=== PATIENT | female | born 1950 | race Caucasian/White ===

== ENCOUNTER → 2020-12-13 07:29 | Outpatient (CLI) | payer MEDICARE, OTHER, SELFPAY ==
[2020-12-13 08:54] LABS: Add Manual Diff / Slide Review NO; Basophils Absolute Auto 100 /uL (0-100); Basophils Percent Auto 1.2 % (0-2); Eosinophils Absolute Auto 300 /uL (0-450); Eosinophils Percent Auto 5.3 % (2-4); Hematocrit 39.3 % (36-46); Hemoglobin 13.2 g/dL (12.0-16.0); Lymphocytes Absolute Auto 1000 /uL (1100-4500); Lymphocytes Percent Auto 21.7 % (25-40); Mean Corpuscular HGB Conc 33.6 % (30-36); Mean Corpuscular Hemoglobin 30.6 PG (26-34); Mean Corpuscular Volume 90.9 fL (80-100); Monocytes Absolute Auto 400 /uL (0-900); Monocytes Percent Auto 8.2 % (3-14); Neutrophils Absolute Auto 3100 /uL (1500-7000); Neutrophils Percent Auto 63.6 % (50-75); Platelet Count 232 X10^3/uL (150-400); Red Blood Cell Count 4.33 X10^6/uL (4.0-5.2); Red Cell Distribution Width 12.8 % (11.6-14.8); White Blood Cell Count 4.8 X10^3/uL (4.5-11.0)
[2020-12-13 09:23] LABS: Alanine Aminotransferase 47 IU/L (<35); Albumin Globulin Ratio 1.5 (1.0-2.8); Alkaline Phosphatase 80 U/L (38-126); Aspartate Aminotransferase 35 IU/L (14-36); Bilirubin Total 0.4 mg/dL (0.2-1.3); Blood Urea Nitrogen 16 mg/dL (7-17); Calcium 9.1 mg/dL (8.4-10.2); Carbon Dioxide 31 mmol/L (22-32); Chloride 104 mmol/L (98-107); Cholesterol 217 mg/dL (140-199); Estimated Glomerular Filt Rate > 60.0 mL/min (>60); Globulin 2.7 g/dL (1.7-4.1); Glucose 86 mg/dL (80-110); HDL Cholesterol 73 mg/dL (40-60); HEMOLYSIS < 15 (0-50); LDL Cholesterol Calculated 130 mg/dL (<100); Potassium 4.4 mmol/L (3.4-5.1); Sodium 139 mmol/L (137-145); Total Protein 6.7 g/dL (6.3-8.2); Triglycerides 72 mg/dL (35-150)
== END ==
PROVIDERS: PCP Internal Medicine; Referring Provider Internal Medicine; Visit Provider Internal Medicine
DX: I34.0 Nonrheumatic mitral (valve) insufficiency (principal)
CPT/HCPCS: 36415; 80053; 80061; 85025

== ENCOUNTER → 2020-12-21 13:43 | Outpatient (CLI) | payer MEDICARE, SELFPAY ==
--- NOTE | 2020-12-21 13:46 | DI.ECHO.S_ITS ---
[facility] +---------+ : : [address] : : : : [id number] : : : : Phone: [phone] +---------+ Echocardiogram Report + + :Name: LAUREL CHOPRA Study Date: 12/21/2020 Height: 66 in : :[facility] ReadingLocation: Weight: 138 lb : : Gender: Female BSA: 1.7 m2 : :: 1950 Age: 70 yrs BP: 127/85 mmHg: :Reason For Study: MITRAL REGURGITATION : :Ordering Physician: SIGIFREDO, : :SIRI Sharma Performed By: Jossie Cuevas : :Referring: SIRI MEI : + + Interpretation Summary The ejection fraction is estimated to be 65-70%. Diastolic function could not be accurately assessed. The right ventricle is normal in size and function. The left atrium is mildly dilated. There is moderate mitral regurgitation. There is moderate tricuspid regurgitation. PASP is approximately 35 to 40 mmHg. Procedure: A two-dimensional transthoracic echocardiogram with color flow and Doppler was performed. The study quality was technically good. There is no prior echocardiogram noted for this patient. The patient was in sinus bradycardia with heart rates between 54-61 bpm during the exam. Left Ventricle: The left ventricle is normal in size and wall thickness. The ejection fraction is estimated to be 65-70%. Diastolic function could not be accurately assessed due to contradictory data. Right Ventricle: The right ventricle is normal in size and function. Atria: The left atrium is mildly dilated. Right atrial size is normal. There is no Doppler evidence for an interatrial shunt. Mitral Valve: There is a flat closure plane of the the mitral valve leaflets. There is moderate mitral regurgitation. Aortic Valve: The aortic valve is trileaflet. The aortic valve opens well. There is no aortic valve stenosis. No aortic regurgitation is present. Tricuspid Valve: The tricuspid valve leaflets are thin and pliable. There is moderate tricuspid regurgitation. PASP is approximately 35 to 40 mmHg. Pulmonic Valve: The pulmonic valve leaflets are thin and pliable; valve motion is normal. There is mild pulmonic regurgitation. Great Vessels: The aortic root is normal size. The dimensions of the ascending aorta are normal. The IVC is of normal diameter and collapses greater than 50% with a sniff. This suggests a low right atrial pressure of 3 mm Hg. Pericardium/ Pleura There is no pericardial effusion. There is no pleural effusion. MMode/2D Measurements & Calculations LVIDd: 4.5 cm LVOT diam: 2.0 cm LVIDs: 2.8 cm Ao root diam: 2.6 cm FS: 36.1 % asc Aorta Diam: 3.2 cm IVSd: 0.81 cm Ao Arch Diam (Prox Trans): 2.7 cm LVPWd: 0.70 cm LV gracia. diameter/BSA (cm/m^2): 2.6 LV sys. diameter/BSA (cm/m^2): 1.7 LA A2 area: 22.3 cm2 RA long axis: 4.1 cm LA A4 area: 17.6 cm2 RA area: 12.5 cm2 LA length (vol): 4.7 cm RA vol: 32.3 ml LA vol: 71.0 ml RA : 18.9 ml/m2 LA vol index: 41.5 ml/m2 IVC diam: 1.6 cm RVD1 (basal): 3.1 cm TAPSE: 2.2 cm Doppler Measurements & Calculations Ao V2 max: 163.7 cm/sec LVOT Max Dave: 127.6 cm/sec Ao V2 mean: 115.4 cm/sec LV V1 max P.5 mmHg Ao max P.7 mmHg LV V1 VTI: 29.8 cm Ao mean P.9 mmHg KAYLA(I,D): 2.3 cm2 Ao V2 VTI: 39.5 cm KAYLA(V,D): 2.4 cm2 sev ratio: 0.75 KAYLA indexed to BSA (cm^2/m^2): 1.3 MV E max dave: 112.1 cm/sec TR max dave: 280.9 cm/sec MV A max dave: 58.1 cm/sec TR max P.6 mmHg MV E/A: 1.9 PA V2 max: 93.8 cm/sec Med Peak E' Dave: 6.0 cm/sec PA V2 mean: 66.3 cm/sec E/E' med: 18.8 PA mean P.0 mmHg Lat Peak E' Dave: 11.0 cm/sec PA pr(Accel): 15.6 mmHg E/E' lat: 10.2 E/e' average: 14.5 MV dec time: 0.22 sec MR PISA: 2.6 cm2 SV(LVOT): 90.8 ml MR flow rate: 95.5 cm3/sec MR PISA radius: 0.64 cm Reading Physician:03:16 PM
== END ==
PROVIDERS: PCP Internal Medicine; Referring Provider Internal Medicine; Visit Provider Internal Medicine
DX: I08.1 Rheumatic disorders of both mitral and tricuspid valves (principal)
CPT/HCPCS: 93306

== ENCOUNTER 2021-02-21 12:15 | Outpatient (RCR) | payer MEDICARE, SELFPAY ==
--- NOTE | 2020-12-30 13:42 | PT.OIE ---
Current Diagnoses Iliotibial band syndrome, left leg (12/30/20) Past Medical History (Last Updated 10/06/20 @ 15:25 by William Brenner MD) History of bunionectomy of both great toes History of cataract removal with insertion of prosthetic lens (~2020) History of knee surgery History of shoulder surgery History of total left knee replacement (~06/2018) Hypertension (~01/12/20) Infertility Menopausal state Mitral valve regurgitation (~2018) Mixed hyperlipidemia Osteoarthritis Osteoporosis Wears glasses Past Surgical History (Last Updated 10/05/20 @ 21:36 by Diandra Quiroga) Anesthesia History of bunionectomy of both great toes History of cataract removal with insertion of prosthetic lens (~2020) History of ectopic History of knee surgery History of shoulder surgery History of total left knee replacement (~06/2018) Visit Care Team Role Provider Type William Brenner MD Attending Provider Physician Primary Care Provider Referring Provider Specialty: Internal Medicine Address: [address] [place] [address], [address], [facility] Email: [email or web address] Physical Therapy Initial Evaluation PT-OP-A Visit Information Start: 12/28/20 15:29 Freq: Status: Active Protocol: Document 12/30/20 08:16 MB (Rec: 12/30/20 08:28 MB [id number]) Out-Patient Physical Therapy Visit Information Visit Information Visit Type Initial Evaluation Visit Note Medicare AARP Visit Start Time 08:16 Visit Stop Time 08:54 Total Visit Minutes 38 Visit Number 1 Evaluation Information Evaluation Date 12/30/20 PT-OP-B Current Condition Start: 12/28/20 15:29 Freq: Status: Active Protocol: Document 12/30/20 08:16 MB (Rec: 12/30/20 08:28 MB [id number]) Current Condition History of Current Condition Onset Date Months Current Complaints Left hip to lateral left leg pain History of Current Condition Pt is sure that she has left IT band syndrome. The pain moves from her lateral left hip down her leg to below her knee. 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 There is a 3 mile walk at [employer] and 5 mile walk at [facility] and both are excruciating. She has hamstring pain, too. She underwent right knee arthroscopic surgery in 2018 and TKR left knee in 2019. Pain starts immediately upon walking. A democrat trick growing up was popping her left hip out. She has medial left knee pain with performing hip rotator stretch in sitting. In sitting, her left hip can start bothering her. She does knitting in sitting. She is not into the pool. Sleeping is going badly. Her cats wake her up and she has always been a poor sleeper. She does yoga three days a week and uses props and doesn' t do it if it hurts. She was pushing walking speed to 16 minutes a mile for cardiac work out. Prior Treatments and Tests PT in the past and went well Treatment Goals Patient/Caregiver Goals To decrease pain and get back to her walking PT-OP-C Subjective Start: 12/28/20 15:29 Freq: Status: Active Protocol: Document 12/30/20 08:16 MB (Rec: 12/30/20 08:28 MB [id number]) OP-PT Subjective Patient Comments Patient Comments See history of current condition Patient Questionnaires Lower Extremity Functional Scale LEFS Score 54 LEFS Impairment 20 to 39% Impaired (Score 48- 62) PT-OP-G Mobility & Gait Start: 12/28/20 15:29 Freq: Status: Active Protocol: Document 12/30/20 08:16 MB (Rec: 12/30/20 13:42 MB [id number]) OP Gait Assessment Assistive Devices Assistive Device None Gait Deviations General Gait Pattern Within Normal Limits Factors Limiting Gait Function Factors Limiting Gait Function Limited Range of Motion Comments Gait Comments Pt with increased weight bearing lateral left foot with gait in socks PT-OP-J Posture/Palpation/Skin Start: 12/28/20 15:29 Freq: Status: Active Protocol: Document 12/30/20 08:16 MB (Rec: 12/30/20 13:42 MB [id number]) Posture Evaluation Comments Posture Comments Standing posture in socks: Dowager's hump, decreased thoracic kyphosis, increased lumbar lordosis, anterior tile pelvis, right shoulder lower than the left, right medial clavicular protrusion, left iliac crest mildly higher than the right Palpation: increased tension and tenderness left TFL, glute min and vastus lateralis PT-OP-K Range of Motion Start: 12/28/20 15:29 Freq: Status: Active Protocol: Document 12/30/20 08:16 MB (Rec: 12/30/20 13:42 MB [id number]) Hip Goniometric Range of Motion Hip ROM Limitations Comments Passive ER and IR in hooklying WNLs for age and pt reports lateral left hip pain with left Scour test. B Slump Test negative PT-OP-M Strength Start: 12/28/20 15:29 Freq: Status: Active Protocol: Document 12/30/20 08:16 MB (Rec: 12/30/20 13:42 MB [id number]) Hip Strength Hip Manual Muscle Testing Left Flexion (L2) 4 Good Abduction 4 Good Adduction 4 Good Right Flexion (L2) 5 Normal Abduction 5 Normal Adduction 5 Normal Knee Strength Knee Manual Muscle Testing Left Flexion (S2) 5 Normal Extension (L3) 5 Normal Right Flexion (S2) 5 Normal Extension (L3) 5 Normal Ankle/Foot Strength Ankle and Foot Manual Muscle Testing Left Dorsiflexion (L4) 5 Normal Right Dorsiflexion (L4) 5 Normal Toe Strength Toe Manual Muscle Testing Left Great Toe Flexion 5 Normal Right Great Toe Flexion 5 Normal PT-OP-Q Treatments Start: 12/28/20 15:29 Freq: Status: Active Protocol: Document 12/30/20 08:16 MB (Rec: 12/30/20 13:42 MB [id number]) Therapeutic Exercises Supine Exercises Hamstring stretch with AP Side bilateral Comments 20 pumps each foot Hip rotator stretch Side bilateral Comments 30 sec hold each leg, ed not to press on knee Self-Care/Home Management Treatment Education Other Education Ed pt to consider asking doctor or pharmacist about Voltaren gel to use before long walks and going to bed, ed pt to stop twisting hip stretch in supine and forward flexion hamstring stretch and perform stretches that are better for her back that PT teaches her today PT-OP-T Assessment and Plan Start: 12/28/20 15:29 Freq: Status: Active Protocol: Document 12/30/20 08:16 MB (Rec: 12/30/20 13:42 MB [id number]) Physical Therapy Assessment Rehab Potential Rehabilitation Potential Good Evaluation Complexity Number of Personal Factors/Comorbidities 1-2 Number of Body Systems Impaired 1-2 Clinical Presentation at Evaluation Evolving Impairments Impairments Activity Tolerance,Balance, Functional Mobility,Gait,Pain, Posture,ROM,Soft Tissue Mobility,Strength Other Impairments Personal factors include pt is leaving for a two week trip to [place] in a couple of weeks and this will interrupt PT treatment. Body systems affected include musculoskeletal and neuromuscular. Her clinical presentation is evolving in setting of OP and possible degenerative joint changes. Goals 4 Mcfp Goal (LTG) Pt will perform progressive HEP with I including pelvic realignment, postural, flexibility, strengthening and balance exercises to improve pain and strength by 03/01/21. LTG Duration 8 weeks 3 Mcfp Goal (LTG) Pt will gait train at least 1500 feet in 6 minutes with no more than 1/10 left hip discomfort to improve community ambulation by . LTG Duration 8 weeks 2 Building Energy Consultant Goal (LTG) Pt will perform WNLs on a standardized balance test to decrease fall risk and improve dynamic hip strength by . LTG Duration 8 weeks 1 Mcfp Goal (LTG) Pt will present with an improved LEF score to reflect no more than 30% impairment to improve quality of life and function by 03/01/21. LTG Duration 8 weeks Assessment Summary Assessment Pt is a 70 y/o female presenting with progressive left sided lateral hip, lateral leg and anterior knee pain that is worse with sitting a long time, weight bearing and walking. She cannot do her long, brisk walks like she would like d/t pain. She has a history of right knee injury and arthroscopic surgery, left hamstring pain and TKR and medial left knee pain. She has increased myofascial tension left TFL, glute min and vastus lateralis today. PT is concerned about an arthritic pattern to pain and not just IT pain syndrome given her complaints and her response to PT will help determine if there is an underlying hip degenerative process contributing to her pain. She will benefit from PT for alignment, flexibility, strengthening and balance. Barriers include she leaves for a 2 week trip to [place] in a couple of weeks and possible degenerative progress left hip and/or lumbar spine. She is a thin, , post-menopausal female and bone density may also be an underlying issue. Physical Therapy Plan Frequency and Duration Frequency of Treatment 2x/Week Duration of Treatment 8 weeks Plan of Care Start Date 12/30/20 Plan of Care End Date 03/01/21 Therapeutic Interventions Therapeutic Interventions Aquatic Therapy,Balance Training,Canalithic Repositioning,Gait Training, Home Exercise Program,Joint Mobilizations,Manual Therapy, Neuromuscular Re-education, Patient/Caregiver Education, Self-Care/Home Management,Soft Tissue Mobilization,Taping, Therapeutic Activities, Therapeutic Exercises Modalities Cold Pack/Ice Massage,Hot Packs Next Visit Focus/Plan Next Note Type Treatment Note Next Visit Plan Pelvic realignment exercises, Josue stretch, rolling pin massage
--- NOTE | 2020-12-30 13:44 | PT.OPPOC ---
Physical, Occupational & Speech Therapy At [facility] Current Diagnoses Iliotibial band syndrome, left leg (12/30/20) Visit Care Team Role Provider Type William Brenner MD Attending Provider Physician Primary Care Provider Referring Provider Specialty: Internal Medicine Address: [address] [place] [address], [address], [facility] Email: [email or web address] Plan Of Care PT-OP-T Assessment and Plan Start: 12/28/20 15:29 Freq: Status: Active Protocol: Document 12/30/20 08:16 MB (Rec: 12/30/20 13:42 MB [id number]) Physical Therapy Assessment Rehab Potential Rehabilitation Potential Good Evaluation Complexity Number of Personal Factors/Comorbidities 1-2 Number of Body Systems Impaired 1-2 Clinical Presentation at Evaluation Evolving Impairments Impairments Activity Tolerance,Balance, Functional Mobility,Gait,Pain, Posture,ROM,Soft Tissue Mobility,Strength Other Impairments Personal factors include pt is leaving for a two week trip to [facility] in a couple of weeks and this will interrupt PT treatment. Body systems affected include musculoskeletal and neuromuscular. Her clinical presentation is evolving in setting of OP and possible degenerative joint changes. Goals 4 Movie Shot Cameraman Goal (LTG) Pt will perform progressive HEP with I including pelvic realignment, postural, flexibility, strengthening and balance exercises to improve pain and strength by 03/01/21. LTG Duration 8 weeks 3 Movie Shot Cameraman Goal (LTG) Pt will gait train at least 1500 feet in 6 minutes with no more than 1/10 left hip discomfort to improve community ambulation by . LTG Duration 8 weeks 2 Movie Shot Cameraman Goal (LTG) Pt will perform WNLs on a standardized balance test to decrease fall risk and improve dynamic hip strength by . LTG Duration 8 weeks 1 Senior Living Goal (LTG) Pt will present with an improved LEF score to reflect no more than 30% impairment to improve quality of life and function by 03/01/21. LTG Duration 8 weeks Assessment Summary Assessment Pt is a 70 y/o female presenting with progressive left sided lateral hip, lateral leg and anterior knee pain that is worse with sitting a long time, weight bearing and walking. She cannot do her long, brisk walks like she would like d/t pain. She has a history of right knee injury and arthroscopic surgery, left hamstring pain and TKR and medial left knee pain. She has increased myofascial tension left TFL, glute min and vastus lateralis today. PT is concerned about an arthritic pattern to pain and not just IT pain syndrome given her complaints and her response to PT will help determine if there is an underlying hip degenerative process contributing to her pain. She will benefit from PT for alignment, flexibility, strengthening and balance. Barriers include she leaves for a 2 week trip to [place] in a couple of weeks and possible degenerative progress left hip and/or lumbar spine. She is a thin, , post-menopausal female and bone density may also be an underlying issue. Physical Therapy Plan Frequency and Duration Frequency of Treatment 2x/Week Duration of Treatment 8 weeks Plan of Care Start Date 12/30/20 Plan of Care End Date 03/01/21 Therapeutic Interventions Therapeutic Interventions Aquatic Therapy,Balance Training,Canalithic Repositioning,Gait Training, Home Exercise Program,Joint Mobilizations,Manual Therapy, Neuromuscular Re-education, Patient/Caregiver Education, Self-Care/Home Management,Soft Tissue Mobilization,Taping, Therapeutic Activities, Therapeutic Exercises Modalities Cold Pack/Ice Massage,Hot Packs Next Visit Focus/Plan Next Note Type Treatment Note Next Visit Plan Pelvic realignment exercises, Josue stretch, rolling pin massage Plan of Care Dates Plan of Care Start Date 12/30/20 Plan of Care End Date 03/01/21 Electronically Signed by: Sherry Messer, PT 12/30/20 [id number] Please Sign and Return: I have reviewed this Plan of Care and certify that the skilled therapy services above are required to meet the patient?s needs. Physician Signature Date Printed Name and Credentials Clinical Instructor Signature Printed Name and Credentials
--- NOTE | 2021-01-03 08:11 | PT.OTN ---
Current Diagnoses Iliotibial band syndrome, left leg (01/03/21) Physical Therapy Treatment Note PT-OP-A Visit Information Start: 12/28/20 15:29 Freq: Status: Active Protocol: Document 01/03/21 07:31 MB (Rec: 01/03/21 08:11 MB [id number]) Out-Patient Physical Therapy Visit Information Visit Information Visit Type Treatment Note Visit Note 04/01 before KX Visit Start Time 07:31 Visit Stop Time 08:10 Total Visit Minutes 39 Visit Number 2 Evaluation Information Evaluation Date 12/30/20 PT-OP-B Current Condition Start: 12/28/20 15:29 Freq: Status: Active Protocol: Document 12/30/20 08:16 MB (Rec: 12/30/20 08:28 MB [id number]) Current Condition History of Current Condition Onset Date Months Current Complaints Left hip to lateral left leg pain History of Current Condition Pt is sure that she has left IT band syndrome. The pain moves from her lateral left hip down her leg to below her knee. 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 There is a 3 mile walk at [employer] and 5 mile walk at [facility] and both are excruciating. She has hamstring pain, too. She underwent right knee arthroscopic surgery in 2018 and TKR left knee in 2019. Pain starts immediately upon walking. A democrat trick growing up was popping her left hip out. She has medial left knee pain with performing hip rotator stretch in sitting. In sitting, her left hip can start bothering her. She does knitting in sitting. She is not into the pool. Sleeping is going badly. Her cats wake her up and she has always been a poor sleeper. She does yoga three days a week and uses props and doesn' t do it if it hurts. She was pushing walking speed to 16 minutes a mile for cardiac work out. Prior Treatments and Tests PT in the past and went well Treatment Goals Patient/Caregiver Goals To decrease pain and get back to her walking PT-OP-C Subjective Start: 12/28/20 15:29 Freq: Status: Active Protocol: Document 01/03/21 07:31 MB (Rec: 01/03/21 08:11 MB [id number]) OP-PT Subjective Patient Comments Patient Comments Pt states that the modified stretches are better. She has not yet looked into the Voltaren. She leaves for [place] tomorrow. She will get back on Saturday. PT-OP-G Mobility & Gait Start: 12/28/20 15:29 Freq: Status: Active Protocol: Document 12/30/20 08:16 MB (Rec: 12/30/20 13:42 MB [id number]) OP Gait Assessment Assistive Devices Assistive Device None Gait Deviations General Gait Pattern Within Normal Limits Factors Limiting Gait Function Factors Limiting Gait Function Limited Range of Motion Comments Gait Comments Pt with increased weight bearing lateral left foot with gait in socks PT-OP-J Posture/Palpation/Skin Start: 12/28/20 15:29 Freq: Status: Active Protocol: Document 12/30/20 08:16 MB (Rec: 12/30/20 13:42 MB [id number]) Posture Evaluation Comments Posture Comments Standing posture in socks: Dowager's hump, decreased thoracic kyphosis, increased lumbar lordosis, anterior tile pelvis, right shoulder lower than the left, right medial clavicular protrusion, left iliac crest mildly higher than the right Palpation: increased tension and tenderness left TFL, glute min and vastus lateralis PT-OP-K Range of Motion Start: 12/28/20 15:29 Freq: Status: Active Protocol: Document 12/30/20 08:16 MB (Rec: 12/30/20 13:42 MB [id number]) Hip Goniometric Range of Motion Hip ROM Limitations Comments Passive ER and IR in hooklying WNLs for age and pt reports lateral left hip pain with left Scour test. B Slump Test negative PT-OP-M Strength Start: 12/28/20 15:29 Freq: Status: Active Protocol: Document 12/30/20 08:16 MB (Rec: 12/30/20 13:42 MB [id number]) Hip Strength Hip Manual Muscle Testing Left Flexion (L2) 4 Good Abduction 4 Good Adduction 4 Good Right Flexion (L2) 5 Normal Abduction 5 Normal Adduction 5 Normal Knee Strength Knee Manual Muscle Testing Left Flexion (S2) 5 Normal Extension (L3) 5 Normal Right Flexion (S2) 5 Normal Extension (L3) 5 Normal Ankle/Foot Strength Ankle and Foot Manual Muscle Testing Left Dorsiflexion (L4) 5 Normal Right Dorsiflexion (L4) 5 Normal Toe Strength Toe Manual Muscle Testing Left Great Toe Flexion 5 Normal Right Great Toe Flexion 5 Normal PT-OP-Q Treatments Start: 12/28/20 15:29 Freq: Status: Active Protocol: Document 01/03/21 07:31 MB (Rec: 01/03/21 08:11 MB [id number]) Therapeutic Exercises Supine Exercises Josue stretch Side bilateral Comments Pelvic tilt and abdominal drawing in first, dangle leg and opposite leg gerard Pelvic realignment exercises Side bilateral Comments 5 reps, 3 sec hold all exercises Sitting Exercises Quad rolling Side left Comments See saw motion along vastus lateralis Racquet ball MWM Side left Comments Ball under left gastroc TrP and AP Standing Exercises Racquet ball massage Side left Comments TFL and glutes today PT-OP-T Assessment and Plan Start: 12/28/20 15:29 Freq: Status: Active Protocol: Document 01/03/21 07:31 MB (Rec: 01/03/21 08:11 MB [id number]) Physical Therapy Assessment Rehab Potential Rehabilitation Potential Good Evaluation Complexity Number of Personal Factors/Comorbidities 1-2 Number of Body Systems Impaired 1-2 Clinical Presentation at Evaluation Evolving Impairments Impairments Activity Tolerance,Balance, Functional Mobility,Gait,Pain, Posture,ROM,Soft Tissue Mobility,Strength Other Impairments Personal factors include pt is leaving for a two week trip to [place] in a couple of weeks and this will interrupt PT treatment. Body systems affected include musculoskeletal and neuromuscular. Her clinical presentation is evolving in setting of OP and possible degenerative joint changes. Goals 4 Fdc Goal (LTG) Pt will perform progressive HEP with I including pelvic realignment, postural, flexibility, strengthening and balance exercises to improve pain and strength by 03/01/21. LTG Duration 8 weeks 3 Fdc Goal (LTG) Pt will gait train at least 1500 feet in 6 minutes with no more than 1/10 left hip discomfort to improve community ambulation by . LTG Duration 8 weeks 2 Phlebotomy Services Technician Goal (LTG) Pt will perform WNLs on a standardized balance test to decrease fall risk and improve dynamic hip strength by . LTG Duration 8 weeks 1 Phlebotomy Services Technician Goal (LTG) Pt will present with an improved LEF score to reflect no more than 30% impairment to improve quality of life and function by 03/01/21. LTG Duration 8 weeks Assessment Summary Assessment Initiated pelvic realignment exercises, self-STM and progressed flexibility today. Pt is leaving for [facility] and then will be back for one PT treatment before she leaves for [facility]. Physical Therapy Plan Frequency and Duration Frequency of Treatment 2x/Week Duration of Treatment 8 weeks Plan of Care Start Date 12/30/20 Plan of Care End Date 03/01/21 Therapeutic Interventions Therapeutic Interventions Aquatic Therapy,Balance Training,Canalithic Repositioning,Gait Training, Home Exercise Program,Joint Mobilizations,Manual Therapy, Neuromuscular Re-education, Patient/Caregiver Education, Self-Care/Home Management,Soft Tissue Mobilization,Taping, Therapeutic Activities, Therapeutic Exercises Modalities Cold Pack/Ice Massage,Hot Packs Next Visit Focus/Plan Next Note Type Treatment Note Next Visit Plan Answer exercise questions and add hook lying clam, sitting strengthening with band and side stepping, core progression
--- NOTE | 2021-01-10 14:35 | PT.OTN ---
Current Diagnoses Iliotibial band syndrome, left leg (01/10/21) Physical Therapy Treatment Note PT-OP-A Visit Information Start: 12/28/20 15:29 Freq: Status: Active Protocol: Document 01/10/21 13:46 MB (Rec: 01/10/21 14:35 MB [id number]) Out-Patient Physical Therapy Visit Information Visit Information Visit Type Treatment Note Visit Note 04/29 before KX Visit Start Time 13:46 Visit Stop Time 14:26 Total Visit Minutes 40 Visit Number 3 Evaluation Information Evaluation Date 12/30/20 PT-OP-B Current Condition Start: 12/28/20 15:29 Freq: Status: Active Protocol: Document 12/30/20 08:16 MB (Rec: 12/30/20 08:28 MB [id number]) Current Condition History of Current Condition Onset Date Months Current Complaints Left hip to lateral left leg pain History of Current Condition Pt is sure that she has left IT band syndrome. The pain moves from her lateral left hip down her leg to below her knee. 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 There is a 3 mile walk at [employer] and 5 mile walk at [facility] and both are excruciating. She has hamstring pain, too. She underwent right knee arthroscopic surgery in 2018 and TKR left knee in 2019. Pain starts immediately upon walking. A alliance party trick growing up was popping her left hip out. She has medial left knee pain with performing hip rotator stretch in sitting. In sitting, her left hip can start bothering her. She does knitting in sitting. She is not into the pool. Sleeping is going badly. Her cats wake her up and she has always been a poor sleeper. She does yoga three days a week and uses props and doesn' t do it if it hurts. She was pushing walking speed to 16 minutes a mile for cardiac work out. Prior Treatments and Tests PT in the past and went well Treatment Goals Patient/Caregiver Goals To decrease pain and get back to her walking PT-OP-C Subjective Start: 12/28/20 15:29 Freq: Status: Active Protocol: Document 01/10/21 13:46 MB (Rec: 01/10/21 14:35 MB [id number]) OP-PT Subjective Patient Comments Patient Comments Pt states that she stopped taking the oral NSAID to try the Voltaren on her left hip and she bad pain at night-time and woke up with a neck pain as well. She took oral NSAID this a.m. and her back got better. She got some [employer] shoes and felt the difference immediately compared to her old shoes. PT-OP-G Mobility & Gait Start: 12/28/20 15:29 Freq: Status: Active Protocol: Document 12/30/20 08:16 MB (Rec: 12/30/20 13:42 MB [id number]) OP Gait Assessment Assistive Devices Assistive Device None Gait Deviations General Gait Pattern Within Normal Limits Factors Limiting Gait Function Factors Limiting Gait Function Limited Range of Motion Comments Gait Comments Pt with increased weight bearing lateral left foot with gait in socks PT-OP-J Posture/Palpation/Skin Start: 12/28/20 15:29 Freq: Status: Active Protocol: Document 12/30/20 08:16 MB (Rec: 12/30/20 13:42 MB [id number]) Posture Evaluation Comments Posture Comments Standing posture in socks: Dowager's hump, decreased thoracic kyphosis, increased lumbar lordosis, anterior tile pelvis, right shoulder lower than the left, right medial clavicular protrusion, left iliac crest mildly higher than the right Palpation: increased tension and tenderness left TFL, glute min and vastus lateralis PT-OP-K Range of Motion Start: 12/28/20 15:29 Freq: Status: Active Protocol: Document 12/30/20 08:16 MB (Rec: 12/30/20 13:42 MB [id number]) Hip Goniometric Range of Motion Hip ROM Limitations Comments Passive ER and IR in hooklying WNLs for age and pt reports lateral left hip pain with left Scour test. B Slump Test negative PT-OP-M Strength Start: 12/28/20 15:29 Freq: Status: Active Protocol: Document 12/30/20 08:16 MB (Rec: 12/30/20 13:42 MB [id number]) Hip Strength Hip Manual Muscle Testing Left Flexion (L2) 4 Good Abduction 4 Good Adduction 4 Good Right Flexion (L2) 5 Normal Abduction 5 Normal Adduction 5 Normal Knee Strength Knee Manual Muscle Testing Left Flexion (S2) 5 Normal Extension (L3) 5 Normal Right Flexion (S2) 5 Normal Extension (L3) 5 Normal Ankle/Foot Strength Ankle and Foot Manual Muscle Testing Left Dorsiflexion (L4) 5 Normal Right Dorsiflexion (L4) 5 Normal Toe Strength Toe Manual Muscle Testing Left Great Toe Flexion 5 Normal Right Great Toe Flexion 5 Normal PT-OP-Q Treatments Start: 12/28/20 15:29 Freq: Status: Active Protocol: Document 01/10/21 13:46 MB (Rec: 01/10/21 14:35 MB [id number]) Therapeutic Exercises Supine Exercises Josue stretch Side bilateral Reps/Minutes 45 sec hold each Comments Pelvic tilt and abdominal drawing in first, dangle leg and opposite leg gerard Pelvic realignment exercises Side bilateral Resistance Blue ball Comments 5 reps, 3 sec hold all exercises Hamstring stretch with AP Side bilateral Comments 20 pumps each foot Hip rotator stretch Side bilateral Comments 30 sec hold each leg, ed not to press on knee Standing Exercises Racquet ball massage Side left Comments Intrascapular muscles and infraspinatus Manual Therapy Treatment Other Other Manual Treatments STM right adductors, vastus lateralis, hamstrings, TFL PT-OP-T Assessment and Plan Start: 12/28/20 15:29 Freq: Status: Active Protocol: Document 01/10/21 13:46 MB (Rec: 01/10/21 14:35 MB [id number]) Physical Therapy Assessment Rehab Potential Rehabilitation Potential Good Evaluation Complexity Number of Personal Factors/Comorbidities 1-2 Number of Body Systems Impaired 1-2 Clinical Presentation at Evaluation Evolving Impairments Impairments Activity Tolerance,Balance, Functional Mobility,Gait,Pain, Posture,ROM,Soft Tissue Mobility,Strength Other Impairments Personal factors include pt is leaving for a two week trip to [place] in a couple of weeks and this will interrupt PT treatment. Body systems affected include musculoskeletal and neuromuscular. Her clinical presentation is evolving in setting of OP and possible degenerative joint changes. Goals 4 Jail Goal (LTG) Pt will perform progressive HEP with I including pelvic realignment, postural, flexibility, strengthening and balance exercises to improve pain and strength by 03/01/21. LTG Duration 8 weeks 3 Hematologist Goal (LTG) Pt will gait train at least 1500 feet in 6 minutes with no more than 1/10 left hip discomfort to improve community ambulation by . LTG Duration 8 weeks 2 Jail Goal (LTG) Pt will perform WNLs on a standardized balance test to decrease fall risk and improve dynamic hip strength by . LTG Duration 8 weeks 1 Jail Goal (LTG) Pt will present with an improved LEF score to reflect no more than 30% impairment to improve quality of life and function by 03/01/21. LTG Duration 8 weeks Assessment Summary Assessment Pt has a lot of tension in left adductors, medial hamstring and TFL. Muscles respond well to manual work today. She leaves for [facility] for two weeks tomorrow. Will con't PT upon her return. Physical Therapy Plan Frequency and Duration Frequency of Treatment 2x/Week Duration of Treatment 8 weeks Plan of Care Start Date 12/30/20 Plan of Care End Date 03/01/21 Therapeutic Interventions Therapeutic Interventions Aquatic Therapy,Balance Training,Canalithic Repositioning,Gait Training, Home Exercise Program,Joint Mobilizations,Manual Therapy, Neuromuscular Re-education, Patient/Caregiver Education, Self-Care/Home Management,Soft Tissue Mobilization,Taping, Therapeutic Activities, Therapeutic Exercises Modalities Cold Pack/Ice Massage,Hot Packs Next Visit Focus/Plan Next Note Type Treatment Note Next Visit Plan Hip adductor stretch/happy baby Sitting strengthening with band and side stepping, core progression
--- NOTE | 2021-01-27 10:36 | PT.OTN ---
Current Diagnoses Iliotibial band syndrome, left leg (01/27/21) Physical Therapy Treatment Note PT-OP-A Visit Information Start: 12/28/20 15:29 Freq: Status: Active Protocol: Document 01/27/21 09:50 SP (Rec: 01/27/21 10:36 SP [id number]) Out-Patient Physical Therapy Visit Information Visit Information Visit Type Treatment Note Visit Note 05/30 before KX Visit Start Time 09:50 Visit Stop Time 10:36 Total Visit Minutes 46 Visit Number 4 Number of ETHANOL QUALITY LEADER Visits 1 Evaluation Information Evaluation Date 12/30/20 PT-OP-B Current Condition Start: 12/28/20 15:29 Freq: Status: Active Protocol: Document 12/30/20 08:16 MB (Rec: 12/30/20 08:28 MB [id number]) Current Condition History of Current Condition Onset Date Months Current Complaints Left hip to lateral left leg pain History of Current Condition Pt is sure that she has left IT band syndrome. The pain moves from her lateral left hip down her leg to below her knee. 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 There is a 3 mile walk at [place] and 5 mile walk at [facility] and both are excruciating. She has hamstring pain, too. She underwent right knee arthroscopic surgery in 2018 and TKR left knee in 2019. Pain starts immediately upon walking. A alliance party trick growing up was popping her left hip out. She has medial left knee pain with performing hip rotator stretch in sitting. In sitting, her left hip can start bothering her. She does knitting in sitting. She is not into the pool. Sleeping is going badly. Her cats wake her up and she has always been a poor sleeper. She does yoga three days a week and uses props and doesn' t do it if it hurts. She was pushing walking speed to 16 minutes a mile for cardiac work out. Prior Treatments and Tests PT in the past and went well Treatment Goals Patient/Caregiver Goals To decrease pain and get back to her walking PT-OP-C Subjective Start: 12/28/20 15:29 Freq: Status: Active Protocol: Document 01/27/21 09:50 SP (Rec: 01/27/21 10:36 SP [id number]) OP-PT Subjective Patient Comments Patient Comments Pt reports felt really good after last tx and had no pain over vacation but states was walking slower at 's pace (has foot drop w/ AFO use ) during vacation and maybe why better. The flight home even though got up and walked around on plane and stretched what could then [address] home from airport caused extreme L hip/ leg pain, has lessened but still persistant since Sat. She did ex/ stretching/ rolling knows can do and walked when got back with son at her normal self goal approx 15 min/ mile pacing and her R proximal HS and ITB pain returned, she notices she does have a hard heel strike cadance when walks wonder if is a factor. PT-OP-G Mobility & Gait Start: 12/28/20 15:29 Freq: Status: Active Protocol: Document 12/30/20 08:16 MB (Rec: 12/30/20 13:42 MB [id number]) OP Gait Assessment Assistive Devices Assistive Device None Gait Deviations General Gait Pattern Within Normal Limits Factors Limiting Gait Function Factors Limiting Gait Function Limited Range of Motion Comments Gait Comments Pt with increased weight bearing lateral left foot with gait in socks PT-OP-J Posture/Palpation/Skin Start: 12/28/20 15:29 Freq: Status: Active Protocol: Document 12/30/20 08:16 MB (Rec: 12/30/20 13:42 MB [id number]) Posture Evaluation Comments Posture Comments Standing posture in socks: Dowager's hump, decreased thoracic kyphosis, increased lumbar lordosis, anterior tile pelvis, right shoulder lower than the left, right medial clavicular protrusion, left iliac crest mildly higher than the right Palpation: increased tension and tenderness left TFL, glute min and vastus lateralis PT-OP-K Range of Motion Start: 12/28/20 15:29 Freq: Status: Active Protocol: Document 12/30/20 08:16 MB (Rec: 12/30/20 13:42 MB [id number]) Hip Goniometric Range of Motion Hip ROM Limitations Comments Passive ER and IR in hooklying WNLs for age and pt reports lateral left hip pain with left Scour test. B Slump Test negative PT-OP-M Strength Start: 12/28/20 15:29 Freq: Status: Active Protocol: Document 12/30/20 08:16 MB (Rec: 12/30/20 13:42 MB [id number]) Hip Strength Hip Manual Muscle Testing Left Flexion (L2) 4 Good Abduction 4 Good Adduction 4 Good Right Flexion (L2) 5 Normal Abduction 5 Normal Adduction 5 Normal Knee Strength Knee Manual Muscle Testing Left Flexion (S2) 5 Normal Extension (L3) 5 Normal Right Flexion (S2) 5 Normal Extension (L3) 5 Normal Ankle/Foot Strength Ankle and Foot Manual Muscle Testing Left Dorsiflexion (L4) 5 Normal Right Dorsiflexion (L4) 5 Normal Toe Strength Toe Manual Muscle Testing Left Great Toe Flexion 5 Normal Right Great Toe Flexion 5 Normal PT-OP-Q Treatments Start: 12/28/20 15:29 Freq: Status: Active Protocol: Document 01/27/21 09:50 SP (Rec: 01/27/21 10:36 SP [id number]) Therapeutic Exercises Supine Exercises adductor stretch Supine Exercise Name Fig 4 hip IR, foot contact adductor on other side Side left Equipment Used w/breath Reps/Minutes 30s x3 Comments good feedback response vs long leg w// strap not as good happy baby Supine Exercise Name added to HEP, has done in past Side bilateral Reps/Minutes 30 hold x2 Comments cued set up and LE positioning , good feedback response Josue stretch Side bilateral Reps/Minutes 45 sec hold each Comments Pelvic tilt and abdominal drawing in first, dangle leg and opposite leg gerard Pelvic realignment exercises Supine Exercise Name cued gentle met and little more pressure Side bilateral Resistance Blue ball Reps/Minutes 5 reps, 3 sec hold all exercises Comments cued gentle engage and release Hamstring stretch with AP Side bilateral Comments 20 pumps each foot Hip rotator stretch Supine Exercise Name PF stretch graps other thigh, hold toward chest stretch Side bilateral Comments 30 sec hold each leg, ed not to press on knee Sitting Exercises Racquet ball MWM Sitting Exercise Name HS on LAX ball release Standing Exercises Racquet ball massage Side left Equipment Used long sitting on floor- Good feedback response!! Reps/Minutes 30 sec Comments sustaind pressure prox medial HS and adductor joon Manual Therapy Treatment Soft Tissue Mobilization STMs Body Location L HS prox, adductor joon, Semi memb/ semi tendon Mobilization Type Cross-Friction,Sustained Pressure Intensity/Depth Moderate Body Position Prone over pillows Comments tendon>musculotendonis junction: Medial proximal HS and adductor joon good moderate pressure sustained and cross friction feedback to assist release, educated use of tennis ball long sitting on ball-great feedback release, states will use of lacrosse ball well be more improved release, tennis ball didn't seem enough. PT-OP-T Assessment and Plan Start: 12/28/20 15:29 Freq: Status: Active Protocol: Document 01/27/21 09:50 SP (Rec: 01/27/21 10:36 SP [id number]) Physical Therapy Assessment Goals 4 Sheet Fed Printer Goal (LTG) Pt will perform progressive HEP with I including pelvic realignment, postural, flexibility, strengthening and balance exercises to improve pain and strength by 03/01/21. LTG Duration 8 weeks 3 Assisted Goal (LTG) Pt will gait train at least 1500 feet in 6 minutes with no more than 1/10 left hip discomfort to improve community ambulation by . LTG Duration 8 weeks 2 Sheet Fed Printer Goal (LTG) Pt will perform WNLs on a standardized balance test to decrease fall risk and improve dynamic hip strength by . LTG Duration 8 weeks 1 Assisted Goal (LTG) Pt will present with an improved LEF score to reflect no more than 30% impairment to improve quality of life and function by 03/01/21. LTG Duration 8 weeks Assessment Summary Assessment Pt responded well to manual, stretching and initiated happy baby, adductor stretch and self sustained pressure long sitting over ball with great decrease tension over L proximal medial HS/ addutor joon, has a lacrosse ball feels will be more benifical than tennis ball isn't enough pressure. NEXT tx: assess gait eccentric advancement and if core or hip abd weakness factor in hip/ leg pain upon heel strike irritation. Physical Therapy Plan Frequency and Duration Frequency of Treatment 2x/Week Duration of Treatment 8 weeks Plan of Care Start Date 12/30/20 Plan of Care End Date 03/01/21 Therapeutic Interventions Therapeutic Interventions Aquatic Therapy,Balance Training,Canalithic Repositioning,Gait Training, Home Exercise Program,Joint Mobilizations,Manual Therapy, Neuromuscular Re-education, Patient/Caregiver Education, Self-Care/Home Management,Soft Tissue Mobilization,Taping, Therapeutic Activities, Therapeutic Exercises Modalities Cold Pack/Ice Massage,Hot Packs Next Visit Focus/Plan Next Note Type Treatment Note Next Visit Plan Recheck added Hip adductor stretch/happy baby last tx. Next tx assess walking, cadance due to pain faster pace heel strike reports, see assessment. POC: Sitting strengthening with band and side stepping, core progression
--- NOTE | 2021-01-30 08:56 | PT.OTN ---
Addendum entered and electronically signed by Sherry Messer, PT 01/30/21 08:58: Duplicate Original Note: Current Diagnoses Iliotibial band syndrome, left leg (01/30/21) Physical Therapy Treatment Note PT-OP-A Visit Information Start: 12/28/20 15:29 Freq: Status: Active Protocol: Document 01/30/21 08:15 MB (Rec: 01/30/21 08:56 MB [id number]) Out-Patient Physical Therapy Visit Information Visit Information Visit Type Treatment Note Visit Note 06/29 before KX Visit Start Time 08:15 Visit Stop Time 08:55 Total Visit Minutes 40 Visit Number 5 Number of SOFTWARE PACKAGER Visits 0 Evaluation Information Evaluation Date 12/30/20 PT-OP-B Current Condition Start: 12/28/20 15:29 Freq: Status: Active Protocol: Document 12/30/20 08:16 MB (Rec: 12/30/20 08:28 MB [id number]) Current Condition History of Current Condition Onset Date Months Current Complaints Left hip to lateral left leg pain History of Current Condition Pt is sure that she has left IT band syndrome. The pain moves from her lateral left hip down her leg to below her knee. 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 There is a 3 mile walk at [employer] [place] and [address] [facility] and both are excruciating. She has hamstring pain, too. She underwent right knee arthroscopic surgery in 2018 and TKR left knee in 2019. Pain starts immediately upon walking. A libertarian trick growing up was popping her left hip out. She has medial left knee pain with performing hip rotator stretch in sitting. In sitting, her left hip can start bothering her. She does knitting in sitting. She is not into the pool. Sleeping is going badly. Her cats wake her up and she has always been a poor sleeper. She does yoga three days a week and uses props and doesn' t do it if it hurts. She was pushing walking speed to 16 minutes a mile for cardiac work out. Prior Treatments and Tests PT in the past and went well Treatment Goals Patient/Caregiver Goals To decrease pain and get back to her walking PT-OP-C Subjective Start: 12/28/20 15:29 Freq: Status: Active Protocol: Document 01/30/21 08:15 MB (Rec: 01/30/21 08:56 MB [id number]) OP-PT Subjective Patient Comments Patient Comments Pt states that her trip to [facility] went well. Pt states that her hip did fine. She was walking slowly with her who has foot drop. Her left hip started flaring up again yesterday when she went walking. She walked three miles. PT-OP-G Mobility & Gait Start: 12/28/20 15:29 Freq: Status: Active Protocol: Document 12/30/20 08:16 MB (Rec: 12/30/20 13:42 MB [id number]) OP Gait Assessment Assistive Devices Assistive Device None Gait Deviations General Gait Pattern Within Normal Limits Factors Limiting Gait Function Factors Limiting Gait Function Limited Range of Motion Comments Gait Comments Pt with increased weight bearing lateral left foot with gait in socks PT-OP-J Posture/Palpation/Skin Start: 12/28/20 15:29 Freq: Status: Active Protocol: Document 12/30/20 08:16 MB (Rec: 12/30/20 13:42 MB [id number]) Posture Evaluation Comments Posture Comments Standing posture in socks: Dowager's hump, decreased thoracic kyphosis, increased lumbar lordosis, anterior tile pelvis, right shoulder lower than the left, right medial clavicular protrusion, left iliac crest mildly higher than the right Palpation: increased tension and tenderness left TFL, glute min and vastus lateralis PT-OP-K Range of Motion Start: 12/28/20 15:29 Freq: Status: Active Protocol: Document 12/30/20 08:16 MB (Rec: 12/30/20 13:42 MB [id number]) Hip Goniometric Range of Motion Hip ROM Limitations Comments Passive ER and IR in hooklying WNLs for age and pt reports lateral left hip pain with left Scour test. B Slump Test negative PT-OP-M Strength Start: 12/28/20 15:29 Freq: Status: Active Protocol: Document 12/30/20 08:16 MB (Rec: 12/30/20 13:42 MB [id number]) Hip Strength Hip Manual Muscle Testing Left Flexion (L2) 4 Good Abduction 4 Good Adduction 4 Good Right Flexion (L2) 5 Normal Abduction 5 Normal Adduction 5 Normal Knee Strength Knee Manual Muscle Testing Left Flexion (S2) 5 Normal Extension (L3) 5 Normal Right Flexion (S2) 5 Normal Extension (L3) 5 Normal Ankle/Foot Strength Ankle and Foot Manual Muscle Testing Left Dorsiflexion (L4) 5 Normal Right Dorsiflexion (L4) 5 Normal Toe Strength Toe Manual Muscle Testing Left Great Toe Flexion 5 Normal Right Great Toe Flexion 5 Normal PT-OP-Q Treatments Start: 12/28/20 15:29 Freq: Status: Active Protocol: Document 01/30/21 08:15 MB (Rec: 01/30/21 08:56 MB [id number]) Therapeutic Exercises Supine Exercises Core progression Supine Exercise Name Abdominal drawing in, knee rocking, HS, mini march, bridge, knee fall out Side bilateral Comments Many reps and cues for form Clam in hook lying Side bilateral Resistance Level 2 band around knees Comments 10 reps slowly x2 and pt states that she feels in left hip ITB and lateral hamstring stretch Supine Exercise Name TFL as well Side bilateral Comments 2 reps, 20 sec each adductor stretch Supine Exercise Name Fig 4 hip IR, foot contact adductor on other side Side bilateral Reps/Minutes 1 reps, 20 sec Comments Cues for posterior pelvic tilt and spine flat happy baby Side bilateral Reps/Minutes 30 sec and cues for form Josue stretch Side bilateral Reps/Minutes 45 sec hold each Comments Pelvic tilt and abdominal drawing in Hamstring stretch with AP Side bilateral Comments 20 pumps each foot PT-OP-T Assessment and Plan Start: 12/28/20 15:29 Freq: Status: Active Protocol: Document 01/30/21 08:15 MB (Rec: 01/30/21 08:56 MB [id number]) Physical Therapy Assessment Rehab Potential Rehabilitation Potential Good Evaluation Complexity Number of Personal Factors/Comorbidities 1-2 Number of Body Systems Impaired 1-2 Clinical Presentation at Evaluation Evolving Impairments Impairments Activity Tolerance,Balance, Functional Mobility,Gait,Pain, Posture,ROM,Soft Tissue Mobility,Strength Other Impairments Personal factors include pt is leaving for a two week trip to [place] in a couple of weeks and this will interrupt PT treatment. Body systems affected include musculoskeletal and neuromuscular. Her clinical presentation is evolving in setting of OP and possible degenerative joint changes. Goals 4 Credit Administration Manager Goal (LTG) Pt will perform progressive HEP with I including pelvic realignment, postural, flexibility, strengthening and balance exercises to improve pain and strength by 03/01/21. LTG Duration 8 weeks 3 Credit Administration Manager Goal (LTG) Pt will gait train at least 1500 feet in 6 minutes with no more than 1/10 left hip discomfort to improve community ambulation by . LTG Duration 8 weeks 2 Custodial Goal (LTG) Pt will perform WNLs on a standardized balance test to decrease fall risk and improve dynamic hip strength by . LTG Duration 8 weeks 1 Custodial Goal (LTG) Pt will present with an improved LEF score to reflect no more than 30% impairment to improve quality of life and function by 03/01/21. LTG Duration 8 weeks Assessment Summary Assessment Pt con't with pain with WB, walking and increasing gait speed and distance and her symptoms sound arthritic in nature. Recommend orthopedic consult and diagnostics. Given her reports of history of osteopenia in her lumbar spine , it is worth having her lumbar spine checked out as well. Progressed core strengthening today. Physical Therapy Plan Frequency and Duration Frequency of Treatment 2x/Week Duration of Treatment 8 weeks Plan of Care Start Date 12/30/20 Plan of Care End Date 03/01/21 Therapeutic Interventions Therapeutic Interventions Aquatic Therapy,Balance Training,Canalithic Repositioning,Gait Training, Home Exercise Program,Joint Mobilizations,Manual Therapy, Neuromuscular Re-education, Patient/Caregiver Education, Self-Care/Home Management,Soft Tissue Mobilization,Taping, Therapeutic Activities, Therapeutic Exercises Modalities Cold Pack/Ice Massage,Hot Packs Other Referrals/Consults Referrals/Consults Recommended Recommend ortho consult for left hip pain, PT concerned about OA. A screen of lumbar integrity on diagnostic would be helpful as well to r/o spine. Next Visit Focus/Plan Next Note Type Treatment Note Next Visit Plan Sitting strengthening for DF and eversion, quads, hip abduction in sitting with band
--- NOTE | 2021-01-30 08:58 | PT.OTN ---
Current Diagnoses Iliotibial band syndrome, left leg (01/30/21) Physical Therapy Treatment Note PT-OP-A Visit Information Start: 12/28/20 15:29 Freq: Status: Active Protocol: Document 01/30/21 08:15 MB (Rec: 01/30/21 08:56 MB [id number]) Out-Patient Physical Therapy Visit Information Visit Information Visit Type Treatment Note Visit Note 06/29 before KX Visit Start Time 08:15 Visit Stop Time 08:55 Total Visit Minutes 40 Visit Number 5 Number of SUPERVISOR BLOOMING MILL Visits 0 Evaluation Information Evaluation Date 12/30/20 PT-OP-B Current Condition Start: 12/28/20 15:29 Freq: Status: Active Protocol: Document 12/30/20 08:16 MB (Rec: 12/30/20 08:28 MB [id number]) Current Condition History of Current Condition Onset Date Months Current Complaints Left hip to lateral left leg pain History of Current Condition Pt is sure that she has left IT band syndrome. The pain moves from her lateral left hip down her leg to below her knee. 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 There is a 3 mile walk at [email or web address] and 5 mile walk at [facility] and both are excruciating. She has hamstring pain, too. She underwent right knee arthroscopic surgery in 2018 and TKR left knee in 2019. Pain starts immediately upon walking. A constitution party trick growing up was popping her left hip out. She has medial left knee pain with performing hip rotator stretch in sitting. In sitting, her left hip can start bothering her. She does knitting in sitting. She is not into the pool. Sleeping is going badly. Her cats wake her up and she has always been a poor sleeper. She does yoga three days a week and uses props and doesn' t do it if it hurts. She was pushing walking speed to 16 minutes a mile for cardiac work out. Prior Treatments and Tests PT in the past and went well Treatment Goals Patient/Caregiver Goals To decrease pain and get back to her walking PT-OP-C Subjective Start: 12/28/20 15:29 Freq: Status: Active Protocol: Document 01/30/21 08:15 MB (Rec: 01/30/21 08:56 MB [id number]) OP-PT Subjective Patient Comments Patient Comments Pt states that her trip to [place] went well. Pt states that her hip did fine. She was walking slowly with her who has foot drop. Her left hip started flaring up again yesterday when she went walking. She walked three miles. PT-OP-G Mobility & Gait Start: 12/28/20 15:29 Freq: Status: Active Protocol: Document 12/30/20 08:16 MB (Rec: 12/30/20 13:42 MB [id number]) OP Gait Assessment Assistive Devices Assistive Device None Gait Deviations General Gait Pattern Within Normal Limits Factors Limiting Gait Function Factors Limiting Gait Function Limited Range of Motion Comments Gait Comments Pt with increased weight bearing lateral left foot with gait in socks PT-OP-J Posture/Palpation/Skin Start: 12/28/20 15:29 Freq: Status: Active Protocol: Document 12/30/20 08:16 MB (Rec: 12/30/20 13:42 MB [id number]) Posture Evaluation Comments Posture Comments Standing posture in socks: Dowager's hump, decreased thoracic kyphosis, increased lumbar lordosis, anterior tile pelvis, right shoulder lower than the left, right medial clavicular protrusion, left iliac crest mildly higher than the right Palpation: increased tension and tenderness left TFL, glute min and vastus lateralis PT-OP-K Range of Motion Start: 12/28/20 15:29 Freq: Status: Active Protocol: Document 12/30/20 08:16 MB (Rec: 12/30/20 13:42 MB [id number]) Hip Goniometric Range of Motion Hip ROM Limitations Comments Passive ER and IR in hooklying WNLs for age and pt reports lateral left hip pain with left Scour test. B Slump Test negative PT-OP-M Strength Start: 12/28/20 15:29 Freq: Status: Active Protocol: Document 12/30/20 08:16 MB (Rec: 12/30/20 13:42 MB [id number]) Hip Strength Hip Manual Muscle Testing Left Flexion (L2) 4 Good Abduction 4 Good Adduction 4 Good Right Flexion (L2) 5 Normal Abduction 5 Normal Adduction 5 Normal Knee Strength Knee Manual Muscle Testing Left Flexion (S2) 5 Normal Extension (L3) 5 Normal Right Flexion (S2) 5 Normal Extension (L3) 5 Normal Ankle/Foot Strength Ankle and Foot Manual Muscle Testing Left Dorsiflexion (L4) 5 Normal Right Dorsiflexion (L4) 5 Normal Toe Strength Toe Manual Muscle Testing Left Great Toe Flexion 5 Normal Right Great Toe Flexion 5 Normal PT-OP-Q Treatments Start: 12/28/20 15:29 Freq: Status: Active Protocol: Document 01/30/21 08:15 MB (Rec: 01/30/21 08:56 MB [id number]) Therapeutic Exercises Supine Exercises Core progression Supine Exercise Name Abdominal drawing in, knee rocking, HS, mini march, bridge, knee fall out Side bilateral Comments Many reps and cues for form Clam in hook lying Side bilateral Resistance Level 2 band around knees Comments 10 reps slowly x2 and pt states that she feels in left hip ITB and lateral hamstring stretch Supine Exercise Name TFL as well Side bilateral Comments 2 reps, 20 sec each adductor stretch Supine Exercise Name Fig 4 hip IR, foot contact adductor on other side Side bilateral Reps/Minutes 1 reps, 20 sec Comments Cues for posterior pelvic tilt and spine flat happy baby Side bilateral Reps/Minutes 30 sec and cues for form Josue stretch Side bilateral Reps/Minutes 45 sec hold each Comments Pelvic tilt and abdominal drawing in Hamstring stretch with AP Side bilateral Comments 20 pumps each foot PT-OP-T Assessment and Plan Start: 12/28/20 15:29 Freq: Status: Active Protocol: Document 01/30/21 08:15 MB (Rec: 01/30/21 08:56 MB [id number]) Physical Therapy Assessment Rehab Potential Rehabilitation Potential Good Evaluation Complexity Number of Personal Factors/Comorbidities 1-2 Number of Body Systems Impaired 1-2 Clinical Presentation at Evaluation Evolving Impairments Impairments Activity Tolerance,Balance, Functional Mobility,Gait,Pain, Posture,ROM,Soft Tissue Mobility,Strength Other Impairments Personal factors include pt is leaving for a two week trip to [place] in a couple of weeks and this will interrupt PT treatment. Body systems affected include musculoskeletal and neuromuscular. Her clinical presentation is evolving in setting of OP and possible degenerative joint changes. Goals 4 Prison Goal (LTG) Pt will perform progressive HEP with I including pelvic realignment, postural, flexibility, strengthening and balance exercises to improve pain and strength by 03/01/21. LTG Duration 8 weeks 3 Greens Cutter Goal (LTG) Pt will gait train at least 1500 feet in 6 minutes with no more than 1/10 left hip discomfort to improve community ambulation by . LTG Duration 8 weeks 2 Greens Cutter Goal (LTG) Pt will perform WNLs on a standardized balance test to decrease fall risk and improve dynamic hip strength by . LTG Duration 8 weeks 1 Greens Cutter Goal (LTG) Pt will present with an improved LEF score to reflect no more than 30% impairment to improve quality of life and function by 03/01/21. LTG Duration 8 weeks Assessment Summary Assessment Pt con't with pain with WB, walking and increasing gait speed and distance and her symptoms sound arthritic in nature. Recommend orthopedic consult and diagnostics. Given her reports of history of osteopenia in her lumbar spine , it is worth having her lumbar spine checked out as well. Progressed core strengthening today. Physical Therapy Plan Frequency and Duration Frequency of Treatment 2x/Week Duration of Treatment 8 weeks Plan of Care Start Date 12/30/20 Plan of Care End Date 03/01/21 Therapeutic Interventions Therapeutic Interventions Aquatic Therapy,Balance Training,Canalithic Repositioning,Gait Training, Home Exercise Program,Joint Mobilizations,Manual Therapy, Neuromuscular Re-education, Patient/Caregiver Education, Self-Care/Home Management,Soft Tissue Mobilization,Taping, Therapeutic Activities, Therapeutic Exercises Modalities Cold Pack/Ice Massage,Hot Packs Other Referrals/Consults Referrals/Consults Recommended Recommend ortho consult for left hip pain, PT concerned about OA. A screen of lumbar integrity on diagnostic would be helpful as well to r/o spine. Next Visit Focus/Plan Next Note Type Treatment Note Next Visit Plan Sitting strengthening for DF and eversion, quads, hip abduction in sitting with band
--- NOTE | 2021-02-02 09:06 | PT.OTN ---
Current Diagnoses Iliotibial band syndrome, left leg (02/02/21) Physical Therapy Treatment Note PT-OP-A Visit Information Start: 12/28/20 15:29 Freq: Status: Active Protocol: Document 02/02/21 08:15 SP (Rec: 02/02/21 09:04 SP [id number]) Out-Patient Physical Therapy Visit Information Visit Information Visit Type Treatment Note Visit Note 07/30 before KX Visit Start Time 08:15 Visit Stop Time 09:06 Total Visit Minutes 51 Visit Number 6 Number of ARMATURE WINDER HELPER REPAIR Visits 1 PT-OP-B Current Condition Start: 12/28/20 15:29 Freq: Status: Active Protocol: Document 12/30/20 08:16 MB (Rec: 12/30/20 08:28 MB [id number]) Current Condition History of Current Condition Onset Date Months Current Complaints Left hip to lateral left leg pain History of Current Condition Pt is sure that she has left IT band syndrome. The pain moves from her lateral left hip down her leg to below her knee. 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 There is a 3 mile walk at [employer] and 5 mile walk at [facility] and both are excruciating. She has hamstring pain, too. She underwent right knee arthroscopic surgery in 2018 and TKR left knee in 2019. Pain starts immediately upon walking. A constitution party trick growing up was popping her left hip out. She has medial left knee pain with performing hip rotator stretch in sitting. In sitting, her left hip can start bothering her. She does knitting in sitting. She is not into the pool. Sleeping is going badly. Her cats wake her up and she has always been a poor sleeper. She does yoga three days a week and uses props and doesn' t do it if it hurts. She was pushing walking speed to 16 minutes a mile for cardiac work out. Prior Treatments and Tests PT in the past and went well Treatment Goals Patient/Caregiver Goals To decrease pain and get back to her walking PT-OP-C Subjective Start: 12/28/20 15:29 Freq: Status: Active Protocol: Document 02/02/21 08:15 SP (Rec: 02/02/21 09:04 SP [id number]) OP-PT Subjective Patient Comments Patient Comments Pt stated still feels achy in L hip but hasn't followed up with physician for further assessment. SHe felt the core exercises were very helpful. PT-OP-G Mobility & Gait Start: 12/28/20 15:29 Freq: Status: Active Protocol: Document 12/30/20 08:16 MB (Rec: 12/30/20 13:42 MB [id number]) OP Gait Assessment Assistive Devices Assistive Device None Gait Deviations General Gait Pattern Within Normal Limits Factors Limiting Gait Function Factors Limiting Gait Function Limited Range of Motion Comments Gait Comments Pt with increased weight bearing lateral left foot with gait in socks PT-OP-J Posture/Palpation/Skin Start: 12/28/20 15:29 Freq: Status: Active Protocol: Document 12/30/20 08:16 MB (Rec: 12/30/20 13:42 MB [id number]) Posture Evaluation Comments Posture Comments Standing posture in socks: Dowager's hump, decreased thoracic kyphosis, increased lumbar lordosis, anterior tile pelvis, right shoulder lower than the left, right medial clavicular protrusion, left iliac crest mildly higher than the right Palpation: increased tension and tenderness left TFL, glute min and vastus lateralis PT-OP-K Range of Motion Start: 12/28/20 15:29 Freq: Status: Active Protocol: Document 12/30/20 08:16 MB (Rec: 12/30/20 13:42 MB [id number]) Hip Goniometric Range of Motion Hip ROM Limitations Comments Passive ER and IR in hooklying WNLs for age and pt reports lateral left hip pain with left Scour test. B Slump Test negative PT-OP-M Strength Start: 12/28/20 15:29 Freq: Status: Active Protocol: Document 12/30/20 08:16 MB (Rec: 12/30/20 13:42 MB [id number]) Hip Strength Hip Manual Muscle Testing Left Flexion (L2) 4 Good Abduction 4 Good Adduction 4 Good Right Flexion (L2) 5 Normal Abduction 5 Normal Adduction 5 Normal Knee Strength Knee Manual Muscle Testing Left Flexion (S2) 5 Normal Extension (L3) 5 Normal Right Flexion (S2) 5 Normal Extension (L3) 5 Normal Ankle/Foot Strength Ankle and Foot Manual Muscle Testing Left Dorsiflexion (L4) 5 Normal Right Dorsiflexion (L4) 5 Normal Toe Strength Toe Manual Muscle Testing Left Great Toe Flexion 5 Normal Right Great Toe Flexion 5 Normal PT-OP-Q Treatments Start: 12/28/20 15:29 Freq: Status: Active Protocol: Document 02/02/21 08:15 SP (Rec: 02/02/21 09:04 SP [id number]) Therapeutic Exercises Supine Exercises Core progression Supine Exercise Name Abdominal drawing in, knee rocking, HS, mini march, bridge, knee fall out Side bilateral Reps/Minutes 10 each Comments cued belly button toward back 30% and neutral pelvis slow mid range LE ITB and lateral hamstring stretch Supine Exercise Name TFL as well Side bilateral Comments 2 reps, 20 sec each, cued not hold to long that feel hip pain over stretch Hip rotator stretch Supine Exercise Name PF stretch graps other thigh, hold toward chest stretch Side bilateral Comments 30 sec hold each leg, ed not to press on knee Sitting Exercises resisted LAQ Sitting Exercise Name (performed after core, resisted ankle and clamshell ex)- to much at end tx Side left Resistance TB #1 loop Equipment Used 18 chair Reps/Minutes x3-hold for now Comments caused increased irritation over lateral hip into vastus lateralis resisted clamshell Sitting Exercise Name added to HEP Resistance TB#1 loop Reps/Minutes x10 Comments good set up, form, painfree ankle resisted Sitting Exercise Name DF, EV (L>R)- added to HEP Resistance AROM> TB #1 Reps/Minutes x10 Comments cued small range good painfree response Standing Exercises Racquet ball massage Side left Equipment Used at wall Reps/Minutes 30 sec Comments hip abds, piriformis Self-Care/Home Management Treatment Education Patient Education Home Exercise Program Other Education Extra time spent finding TA facilitation without over recruiting posterior chain: LS , gluts, HS, calves. Draw your belly button in like zipping up pair pants 30% + needed, worked well. PT-OP-R Modalities Start: 02/02/21 11:59 Freq: Status: Active Protocol: Document 02/02/21 08:15 SP (Rec: 02/02/21 12:14 SP [id number]) Hot Pack/Cold Pack Treatment MHP Location R hip Patient Position Sidelying Treatment Duration (minutes) 10 Patient Tolerance Good Comments weight and warmth on R hip calmed her tightness and burning sensation, very low achiness leaving. PT-OP-T Assessment and Plan Start: 12/28/20 15:29 Freq: Status: Active Protocol: Document 02/02/21 08:15 SP (Rec: 02/02/21 09:04 SP [id number]) Physical Therapy Assessment Goals 4 Fpc Goal (LTG) Pt will perform progressive HEP with I including pelvic realignment, postural, flexibility, strengthening and balance exercises to improve pain and strength by 03/01/21. LTG Duration 8 weeks 3 Diorama Model Maker Goal (LTG) Pt will gait train at least 1500 feet in 6 minutes with no more than 1/10 left hip discomfort to improve community ambulation by . LTG Duration 8 weeks 2 Diorama Model Maker Goal (LTG) Pt will perform WNLs on a standardized balance test to decrease fall risk and improve dynamic hip strength by . LTG Duration 8 weeks 1 Fpc Goal (LTG) Pt will present with an improved LEF score to reflect no more than 30% impairment to improve quality of life and function by 03/01/21. LTG Duration 8 weeks Assessment Summary Assessment Pt improved understanding neutral pelvis, TA draw in with self corrections of engagement needed for activity / ex performing with slow activation/ release. Pt reported felt more challenging focused TA effort this tx this is so good, I was really over doing it. Introduced seated resisted clamshell, ankle strengthening painfree. Assessed quad LAQ this tx against TB loop and caused over burning tightness over vastus lateralis/lateral L hip so discontinued, was introduced as last activity and maybe muscle to tired thus irritated, can recheck next tx. Physical Therapy Plan Frequency and Duration Frequency of Treatment 2x/Week Duration of Treatment 8 weeks Plan of Care Start Date 12/30/20 Plan of Care End Date 03/01/21 Therapeutic Interventions Therapeutic Interventions Aquatic Therapy,Balance Training,Canalithic Repositioning,Gait Training, Home Exercise Program,Joint Mobilizations,Manual Therapy, Neuromuscular Re-education, Patient/Caregiver Education, Self-Care/Home Management,Soft Tissue Mobilization,Taping, Therapeutic Activities, Therapeutic Exercises Modalities Cold Pack/Ice Massage,Hot Packs Other Referrals/Consults Referrals/Consults Recommended Recommend ortho consult for left hip pain, PT concerned about OA. A screen of lumbar integrity on diagnostic would be helpful as well to r/o spine. Next Visit Focus/Plan Next Note Type Treatment Note Next Visit Plan Recheck core progression form/ facilitation HEP and initiated seated clam, ankle DF/ EV strengthening last tx. POC: quads
--- NOTE | 2021-02-02 09:06 | PT.OTN ---
Current Diagnoses Iliotibial band syndrome, left leg (02/02/21) Physical Therapy Treatment Note PT-OP-A Visit Information Start: 12/28/20 15:29 Freq: Status: Active Protocol: Document 02/02/21 08:15 SP (Rec: 02/02/21 09:04 SP [id number]) Out-Patient Physical Therapy Visit Information Visit Information Visit Type Treatment Note Visit Note 07/30 before KX Visit Start Time 08:15 Visit Stop Time 09:06 Total Visit Minutes 51 Visit Number 6 Number of DIGITAL PROOFING AND PLATEMAKER Visits 1 PT-OP-B Current Condition Start: 12/28/20 15:29 Freq: Status: Active Protocol: Document 12/30/20 08:16 MB (Rec: 12/30/20 08:28 MB [id number]) Current Condition History of Current Condition Onset Date Months Current Complaints Left hip to lateral left leg pain History of Current Condition Pt is sure that she has left IT band syndrome. The pain moves from her lateral left hip down her leg to below her knee. 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 There is a 3 mile walk at [employer] and 5 mile walk at [facility] and both are excruciating. She has hamstring pain, too. She underwent right knee arthroscopic surgery in 2018 and TKR left knee in 2019. Pain starts immediately upon walking. A alliance party trick growing up was popping her left hip out. She has medial left knee pain with performing hip rotator stretch in sitting. In sitting, her left hip can start bothering her. She does knitting in sitting. She is not into the pool. Sleeping is going badly. Her cats wake her up and she has always been a poor sleeper. She does yoga three days a week and uses props and doesn' t do it if it hurts. She was pushing walking speed to 16 minutes a mile for cardiac work out. Prior Treatments and Tests PT in the past and went well Treatment Goals Patient/Caregiver Goals To decrease pain and get back to her walking PT-OP-C Subjective Start: 12/28/20 15:29 Freq: Status: Active Protocol: Document 02/02/21 08:15 SP (Rec: 02/02/21 09:04 SP [id number]) OP-PT Subjective Patient Comments Patient Comments Pt stated still feels achy in L hip but hasn't followed up with physician for further assessment. SHe felt the core exercises were very helpful. PT-OP-G Mobility & Gait Start: 12/28/20 15:29 Freq: Status: Active Protocol: Document 12/30/20 08:16 MB (Rec: 12/30/20 13:42 MB [id number]) OP Gait Assessment Assistive Devices Assistive Device None Gait Deviations General Gait Pattern Within Normal Limits Factors Limiting Gait Function Factors Limiting Gait Function Limited Range of Motion Comments Gait Comments Pt with increased weight bearing lateral left foot with gait in socks PT-OP-J Posture/Palpation/Skin Start: 12/28/20 15:29 Freq: Status: Active Protocol: Document 12/30/20 08:16 MB (Rec: 12/30/20 13:42 MB [id number]) Posture Evaluation Comments Posture Comments Standing posture in socks: Dowager's hump, decreased thoracic kyphosis, increased lumbar lordosis, anterior tile pelvis, right shoulder lower than the left, right medial clavicular protrusion, left iliac crest mildly higher than the right Palpation: increased tension and tenderness left TFL, glute min and vastus lateralis PT-OP-K Range of Motion Start: 12/28/20 15:29 Freq: Status: Active Protocol: Document 12/30/20 08:16 MB (Rec: 12/30/20 13:42 MB [id number]) Hip Goniometric Range of Motion Hip ROM Limitations Comments Passive ER and IR in hooklying WNLs for age and pt reports lateral left hip pain with left Scour test. B Slump Test negative PT-OP-M Strength Start: 12/28/20 15:29 Freq: Status: Active Protocol: Document 12/30/20 08:16 MB (Rec: 12/30/20 13:42 MB [id number]) Hip Strength Hip Manual Muscle Testing Left Flexion (L2) 4 Good Abduction 4 Good Adduction 4 Good Right Flexion (L2) 5 Normal Abduction 5 Normal Adduction 5 Normal Knee Strength Knee Manual Muscle Testing Left Flexion (S2) 5 Normal Extension (L3) 5 Normal Right Flexion (S2) 5 Normal Extension (L3) 5 Normal Ankle/Foot Strength Ankle and Foot Manual Muscle Testing Left Dorsiflexion (L4) 5 Normal Right Dorsiflexion (L4) 5 Normal Toe Strength Toe Manual Muscle Testing Left Great Toe Flexion 5 Normal Right Great Toe Flexion 5 Normal PT-OP-Q Treatments Start: 12/28/20 15:29 Freq: Status: Active Protocol: Document 02/02/21 08:15 SP (Rec: 02/02/21 09:04 SP [id number]) Therapeutic Exercises Supine Exercises Core progression Supine Exercise Name Abdominal drawing in, knee rocking, HS, mini march, bridge, knee fall out Side bilateral Reps/Minutes 10 each Comments cued belly button toward back 30% and neutral pelvis slow mid range LE ITB and lateral hamstring stretch Supine Exercise Name TFL as well Side bilateral Comments 2 reps, 20 sec each, cued not hold to long that feel hip pain over stretch Hip rotator stretch Supine Exercise Name PF stretch graps other thigh, hold toward chest stretch Side bilateral Comments 30 sec hold each leg, ed not to press on knee Sitting Exercises resisted LAQ Sitting Exercise Name (performed after core, resisted ankle and clamshell ex)- to much at end tx Side left Resistance TB #1 loop Equipment Used 18 chair Reps/Minutes x3-hold for now Comments caused increased irritation over lateral hip into vastus lateralis resisted clamshell Sitting Exercise Name added to HEP Resistance TB#1 loop Reps/Minutes x10 Comments good set up, form, painfree ankle resisted Sitting Exercise Name DF, EV (L>R)- added to HEP Resistance AROM> TB #1 Reps/Minutes x10 Comments cued small range good painfree response Standing Exercises Racquet ball massage Side left Equipment Used at wall Reps/Minutes 30 sec Comments hip abds, piriformis Self-Care/Home Management Treatment Education Patient Education Home Exercise Program Other Education Extra time spent finding TA facilitation without over recruiting posterior chain: LS , gluts, HS, calves. Draw your belly button in like zipping up pair pants 30% + needed, worked well. PT-OP-T Assessment and Plan Start: 12/28/20 15:29 Freq: Status: Active Protocol: Document 02/02/21 08:15 SP (Rec: 02/02/21 09:04 SP [id number]) Physical Therapy Assessment Goals 4 Caster Operator Goal (LTG) Pt will perform progressive HEP with I including pelvic realignment, postural, flexibility, strengthening and balance exercises to improve pain and strength by 03/01/21. LTG Duration 8 weeks 3 Shelter Goal (LTG) Pt will gait train at least 1500 feet in 6 minutes with no more than 1/10 left hip discomfort to improve community ambulation by . LTG Duration 8 weeks 2 Shelter Goal (LTG) Pt will perform WNLs on a standardized balance test to decrease fall risk and improve dynamic hip strength by . LTG Duration 8 weeks 1 Shelter Goal (LTG) Pt will present with an improved LEF score to reflect no more than 30% impairment to improve quality of life and function by 03/01/21. LTG Duration 8 weeks Assessment Summary Assessment Pt improved understanding neutral pelvis, TA draw in with self corrections of engagement needed for activity / ex performing with slow activation/ release. Pt reported felt more challenging focused TA effort this tx this is so good, I was really over doing it. Introduced seated resisted clamshell, ankle strengthening painfree. Assessed quad LAQ this tx against TB loop and caused over burning tightness over vastus lateralis/lateral L hip so discontinued, was introduced as last activity and maybe muscle to tired thus irritated, can recheck next tx. Physical Therapy Plan Frequency and Duration Frequency of Treatment 2x/Week Duration of Treatment 8 weeks Plan of Care Start Date 12/30/20 Plan of Care End Date 03/01/21 Therapeutic Interventions Therapeutic Interventions Aquatic Therapy,Balance Training,Canalithic Repositioning,Gait Training, Home Exercise Program,Joint Mobilizations,Manual Therapy, Neuromuscular Re-education, Patient/Caregiver Education, Self-Care/Home Management,Soft Tissue Mobilization,Taping, Therapeutic Activities, Therapeutic Exercises Modalities Cold Pack/Ice Massage,Hot Packs Other Referrals/Consults Referrals/Consults Recommended Recommend ortho consult for left hip pain, PT concerned about OA. A screen of lumbar integrity on diagnostic would be helpful as well to r/o spine. Next Visit Focus/Plan Next Note Type Treatment Note Next Visit Plan Recheck core progression form/ facilitation HEP and initiated seated clam, ankle DF/ EV strengthening last tx. POC: quads
--- NOTE | 2021-02-09 09:00 | PT.OTN ---
Current Diagnoses Iliotibial band syndrome, left leg (02/09/21) Physical Therapy Treatment Note PT-OP-A Visit Information Start: 12/28/20 15:29 Freq: Status: Active Protocol: Document 02/09/21 08:19 SP (Rec: 02/09/21 09:03 SP [id number]) Out-Patient Physical Therapy Visit Information Visit Information Visit Type Treatment Note Visit Note 08/29 before KX Pt states has cardiology in April. Visit Start Time 08:19 Visit Stop Time 09:00 Total Visit Minutes 41 Visit Number 7 Number of [employer]CISION MARKET INSIGHTS Visits 2 Evaluation Information Evaluation Date 12/30/20 PT-OP-B Current Condition Start: 12/28/20 15:29 Freq: Status: Active Protocol: Document 12/30/20 08:16 MB (Rec: 12/30/20 08:28 MB [id number]) Current Condition History of Current Condition Onset Date Months Current Complaints Left hip to lateral left leg pain History of Current Condition Pt is sure that she has left IT band syndrome. The pain moves from her lateral left hip down her leg to below her knee. 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 There is a 3 mile walk at [employer] [place] and 5 mile walk at [facility] and both are excruciating. She has hamstring pain, too. She underwent right knee arthroscopic surgery in 2018 and TKR left knee in 2019. Pain starts immediately upon walking. A democrat trick growing up was popping her left hip out. She has medial left knee pain with performing hip rotator stretch in sitting. In sitting, her left hip can start bothering her. She does knitting in sitting. She is not into the pool. Sleeping is going badly. Her cats wake her up and she has always been a poor sleeper. She does yoga three days a week and uses props and doesn' t do it if it hurts. She was pushing walking speed to 16 minutes a mile for cardiac work out. Prior Treatments and Tests PT in the past and went well Treatment Goals Patient/Caregiver Goals To decrease pain and get back to her walking PT-OP-C Subjective Start: 12/28/20 15:29 Freq: Status: Active Protocol: Document 02/09/21 08:19 SP (Rec: 02/09/21 09:03 SP [id number]) OP-PT Subjective Patient Comments Patient Comments Pt asked clarification between core lumbar rotation vs TA fallout for proper performance at home wanting to review today. She states compliant with HEP. PT-OP-G Mobility & Gait Start: 12/28/20 15:29 Freq: Status: Active Protocol: Document 12/30/20 08:16 MB (Rec: 12/30/20 13:42 MB [id number]) OP Gait Assessment Assistive Devices Assistive Device None Gait Deviations General Gait Pattern Within Normal Limits Factors Limiting Gait Function Factors Limiting Gait Function Limited Range of Motion Comments Gait Comments Pt with increased weight bearing lateral left foot with gait in socks PT-OP-J Posture/Palpation/Skin Start: 12/28/20 15:29 Freq: Status: Active Protocol: Document 12/30/20 08:16 MB (Rec: 12/30/20 13:42 MB [id number]) Posture Evaluation Comments Posture Comments Standing posture in socks: Dowager's hump, decreased thoracic kyphosis, increased lumbar lordosis, anterior tile pelvis, right shoulder lower than the left, right medial clavicular protrusion, left iliac crest mildly higher than the right Palpation: increased tension and tenderness left TFL, glute min and vastus lateralis PT-OP-K Range of Motion Start: 12/28/20 15:29 Freq: Status: Active Protocol: Document 12/30/20 08:16 MB (Rec: 12/30/20 13:42 MB [id number]) Hip Goniometric Range of Motion Hip ROM Limitations Comments Passive ER and IR in hooklying WNLs for age and pt reports lateral left hip pain with left Scour test. B Slump Test negative PT-OP-M Strength Start: 12/28/20 15:29 Freq: Status: Active Protocol: Document 12/30/20 08:16 MB (Rec: 12/30/20 13:42 MB [id number]) Hip Strength Hip Manual Muscle Testing Left Flexion (L2) 4 Good Abduction 4 Good Adduction 4 Good Right Flexion (L2) 5 Normal Abduction 5 Normal Adduction 5 Normal Knee Strength Knee Manual Muscle Testing Left Flexion (S2) 5 Normal Extension (L3) 5 Normal Right Flexion (S2) 5 Normal Extension (L3) 5 Normal Ankle/Foot Strength Ankle and Foot Manual Muscle Testing Left Dorsiflexion (L4) 5 Normal Right Dorsiflexion (L4) 5 Normal Toe Strength Toe Manual Muscle Testing Left Great Toe Flexion 5 Normal Right Great Toe Flexion 5 Normal PT-OP-Q Treatments Start: 12/28/20 15:29 Freq: Status: Active Protocol: Document 02/09/21 08:19 SP (Rec: 02/09/21 09:03 SP [id number]) Therapeutic Exercises Supine Exercises Core progression Supine Exercise Name Abdominal drawing in, knee rocking, HS, mini march, bridge, knee fall out Side bilateral Equipment Used discussed better understanding not over recruit and more confident grossPPT Reps/Minutes 10 each Comments cued belly button toward back 30% and neutral pelvis slow mid range LE Sitting Exercises resisted clamshell Sitting Exercise Name reviewed HEP Resistance TB#1 loop> #2 Reps/Minutes x10 Comments good set up, form, painfree good strengthening in hips ankle resisted Sitting Exercise Name DF, EV (L>R)- reviewed HEP Side bilateral Resistance AROM> TB #1> #2 Reps/Minutes x10 Comments good set up, form, painfree good strengthening in lateral ankle Quad rolling Sitting Exercise Name vastus lateralis, ITB Side left Reps/Minutes discussed performs at home and very helpful. Comments See saw motion Racquet ball MWM Sitting Exercise Name proximal HS release, over tennis ball Equipment Used seated on table Reps/Minutes 20 sec Comments good feedback response performs at home when needed Standing Exercises eccentric chair taps Standing Exercise Name added to HEP- arms across chest/or front Equipment Used 18 chair Reps/Minutes x30 Comments good comfortable pacing, awareness of L hip and little ache R knee, painfre SLS Standing Exercise Name SLS Tree pose- reviewed self yoga Resistance discussed continue at home for balance progression Reps/Minutes LLE 15 sec, RLE 46 sec Comments good form, cued tall posture, TA and glut facilitation Racquet ball massage Side left Equipment Used at wall Reps/Minutes 30 sec Comments hip abds, piriformis Other Exercises downward dog Other Exercise Name discussed painfree, ok good stretch Resistance added to HEP Reps/Minutes 30s x2 Comments discussed bringing hands closer to feet, improved HS stretch Gait Training Gait Activity 6MWT Device Used 0 Level of Assistance I Surface firm Distance/Duration 1590 Comments reports: rubbing over glut medius and little bit of click . Discussion eccentric heel strike for softer land and jt absorption. Self-Care/Home Management Treatment Education Patient Education Home Exercise Program Other Education Initiated eccentric chair taps for strengthening to improved no UE assist out in community is challenged with. REviewed yoga stretch for finds challenging self: tree pose and down dog. CUed form/ alignment. PT-OP-R Modalities Start: 02/02/21 11:59 Freq: Status: Active Protocol: Document 02/02/21 08:15 SP (Rec: 02/02/21 12:14 SP [id number]) Hot Pack/Cold Pack Treatment MHP Location R hip Patient Position Sidelying Treatment Duration (minutes) 10 Patient Tolerance Good Comments weight and warmth on R hip calmed her tightness and burning sensation, very low achiness leaving. PT-OP-T Assessment and Plan Start: 12/28/20 15:29 Freq: Status: Active Protocol: Document 02/09/21 08:19 SP (Rec: 02/09/21 09:03 SP [id number]) Physical Therapy Assessment Goals 4 [employer] Goal (LTG) Pt will perform progressive HEP with I including pelvic realignment, postural, flexibility, strengthening and balance exercises to improve pain and strength by 03/01/21. LTG Duration 8 weeks 3 [employer] Goal (LTG) Pt will gait train at least 1500 feet in 6 minutes with no more than 1/10 left hip discomfort to improve community ambulation by . 02/09/21: Goal met 1590 ft in 6 min LTG Duration 8 weeks: GOAL MET 02/09/21 2 [employer] Goal (LTG) Pt will perform WNLs on a standardized balance test to decrease fall risk and improve dynamic hip strength by . LTG Duration 8 weeks 1 [facility] Goal (LTG) Pt will present with an improved LEF score to reflect no more than 30% impairment to improve quality of life and function by 03/01/21. LTG Duration 8 weeks Assessment Summary Assessment Pt was able to complete 6MWT 1590 ft, reported little rubbing and a slight click over glut med. Pt reports and demonstrated able to complete [place] pose about 10 sec with little sway self, assess self recorrections with good quad facilitation and SLS. Pt reports tight proximal HS, reviewed self down dog does in yoga and cued for allow deeper stretch hands closer to feet, hold painfree tolerance and good response. Pt states thinks will be ready for DC next tx. Will plan to bring handouts as did today for review if needed. Physical Therapy Plan Frequency and Duration Frequency of Treatment 2x/Week Duration of Treatment 8 weeks Plan of Care Start Date 12/30/20 Plan of Care End Date 03/01/21 Therapeutic Interventions Therapeutic Interventions Aquatic Therapy,Balance Training,Canalithic Repositioning,Gait Training, Home Exercise Program,Joint Mobilizations,Manual Therapy, Neuromuscular Re-education, Patient/Caregiver Education, Self-Care/Home Management,Soft Tissue Mobilization,Taping, Therapeutic Activities, Therapeutic Exercises Modalities Cold Pack/Ice Massage,Hot Packs Other Referrals/Consults Referrals/Consults Recommended Recommend ortho consult for left hip pain, PT concerned about OA. A screen of lumbar integrity on diagnostic would be helpful as well to r/o spine. 02/09/21: pt stated notified but hasn't heard back yet when approved to go with bad weather. Next Visit Focus/Plan Next Note Type Treatment Note Next Visit Plan Recheck HEP, prepare DC next tx.
--- NOTE | 2021-02-13 07:14 | PT-OP ANOTE ---
Pt emails PT to state that her tested positive for COVID last week and she has not been able to get a home test. She states that she will cancel today's appointment and that she should quarantine until tomorrow per CDC guidelines.
--- NOTE | 2021-02-21 12:45 | PT.OTN ---
Current Diagnoses Iliotibial band syndrome, left leg (02/21/21) Physical Therapy Treatment Note PT-OP-A Visit Information Start: 12/28/20 15:29 Freq: Status: Active Protocol: Document 02/21/21 12:17 MB (Rec: 02/21/21 12:45 MB [id number]) Out-Patient Physical Therapy Visit Information Visit Information Visit Type Treatment Note Visit Note 03/01 before KX Pt states has cardiology in April. Visit Start Time 12:17 Visit Stop Time 12:40 Total Visit Minutes 23 Visit Number 8 Number of ECHOCARDIOGRAPHY RADIOLOGY TECHNOLOGIST Visits 0 Evaluation Information Evaluation Date 12/30/20 PT-OP-B Current Condition Start: 12/28/20 15:29 Freq: Status: Active Protocol: Document 12/30/20 08:16 MB (Rec: 12/30/20 08:28 MB [id number]) Current Condition History of Current Condition Onset Date Months Current Complaints Left hip to lateral left leg pain History of Current Condition Pt is sure that she has left IT band syndrome. The pain moves from her lateral left hip down her leg to below her knee. 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 There is a 3 mile walk at [employer] and [address] [facility] and both are excruciating. She has hamstring pain, too. She underwent right knee arthroscopic surgery in 2018 and TKR left knee in 2019. Pain starts immediately upon walking. A republican trick growing up was popping her left hip out. She has medial left knee pain with performing hip rotator stretch in sitting. In sitting, her left hip can start bothering her. She does knitting in sitting. She is not into the pool. Sleeping is going badly. Her cats wake her up and she has always been a poor sleeper. She does yoga three days a week and uses props and doesn' t do it if it hurts. She was pushing walking speed to 16 minutes a mile for cardiac work out. 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 PT-OP-G Mobility & Gait Start: 12/28/20 15:29 Freq: Status: Active Protocol: Document 12/30/20 08:16 MB (Rec: 12/30/20 13:42 MB [id number]) OP Gait Assessment Assistive Devices Assistive Device None Gait Deviations General Gait Pattern Within Normal Limits Factors Limiting Gait Function Factors Limiting Gait Function Limited Range of Motion Comments Gait Comments Pt with increased weight bearing lateral left foot with gait in socks PT-OP-J Posture/Palpation/Skin Start: 12/28/20 15:29 Freq: Status: Active Protocol: Document 12/30/20 08:16 MB (Rec: 12/30/20 13:42 MB [id number]) Posture Evaluation Comments Posture Comments Standing posture in socks: Dowager's hump, decreased thoracic kyphosis, increased lumbar lordosis, anterior tile pelvis, right shoulder lower than the left, right medial clavicular protrusion, left iliac crest mildly higher than the right Palpation: increased tension and tenderness left TFL, glute min and vastus lateralis PT-OP-K Range of Motion Start: 12/28/20 15:29 Freq: Status: Active Protocol: Document 12/30/20 08:16 MB (Rec: 12/30/20 13:42 MB [id number]) Hip Goniometric Range of Motion Hip ROM Limitations Comments Passive ER and IR in hooklying WNLs for age and pt reports lateral left hip pain with left Scour test. B Slump Test negative PT-OP-M Strength Start: 12/28/20 15:29 Freq: Status: Active Protocol: Document 12/30/20 08:16 MB (Rec: 12/30/20 13:42 MB [id number]) Hip Strength Hip Manual Muscle Testing Left Flexion (L2) 4 Good Abduction 4 Good Adduction 4 Good Right Flexion (L2) 5 Normal Abduction 5 Normal Adduction 5 Normal Knee Strength Knee Manual Muscle Testing Left Flexion (S2) 5 Normal Extension (L3) 5 Normal Right Flexion (S2) 5 Normal Extension (L3) 5 Normal Ankle/Foot Strength Ankle and Foot Manual Muscle Testing Left Dorsiflexion (L4) 5 Normal Right Dorsiflexion (L4) 5 Normal Toe Strength Toe Manual Muscle Testing Left Great Toe Flexion 5 Normal Right Great Toe Flexion 5 Normal PT-OP-Q Treatments Start: 12/28/20 15:29 Freq: Status: Active Protocol: Document 02/21/21 12:17 MB (Rec: 02/21/21 12:45 MB [id number]) Therapeutic Exercises Supine Exercises Core progression Comments Pt demonstrates one rep of each exercise Clam in hook lying Comments D/cd today ITB and lateral hamstring stretch Comments Pt demonstrates well today adductor stretch Comments D/cd today happy baby Comments Pt demonstrates well today Pelvic realignment exercises Comments Pt demonstrates well today Hamstring stretch with AP Comments Pt demonstrates well today Hip rotator stretch Comments Pt demonstrates well today Sitting Exercises resisted clamshell Comments Level 3 band and demonstrates well 5 reps ankle resisted Comments DF and eversion level 3 band with both feet in today, 10 reps, still knees Quad rolling Comments Verbalizes understanding Racquet ball MWM Comments Verbalizes understanding Standing Exercises eccentric chair taps Comments D/c today SLS Comments D/c today Other Exercises downward dog Comments Verbalizes understanding today PT-OP-R Modalities Start: 02/02/21 11:59 Freq: Status: Active Protocol: Document 02/02/21 08:15 SP (Rec: 02/02/21 12:14 SP [id number]) Hot Pack/Cold Pack Treatment MHP Location R hip Patient Position Sidelying Treatment Duration (minutes) 10 Patient Tolerance Good Comments weight and warmth on R hip calmed her tightness and burning sensation, very low achiness leaving. PT-OP-T Assessment and Plan Start: 12/28/20 15:29 Freq: Status: Active Protocol: Document 02/21/21 12:17 MB (Rec: 02/21/21 12:45 MB [id number]) Physical Therapy Assessment Goals 4 Intermediate Goal (LTG) Pt will perform progressive HEP with I including pelvic realignment, postural, flexibility, strengthening and balance exercises to improve pain and strength by 03/01/21. 02/21/21: Pt has been sick detoxing and is performing exercises when she is feeling well LTG Duration 8 weeks 3 Service Control Operator Goal (LTG) Pt will gait train at least 1500 feet in 6 minutes with no more than 1/10 left hip discomfort to improve community ambulation by . 02/09/21: Goal met 1590 ft in 6 min LTG Duration 8 weeks: GOAL MET 02/09/21 2 Service Control Operator Goal (LTG) Pt will perform WNLs on a standardized balance test to decrease fall risk and improve dynamic hip strength by . 02/21/21: Deferred in order to review exercises LTG Duration 8 weeks 1 Service Control Operator Goal (LTG) Pt will present with an improved LEF score to reflect no more than 30% impairment to improve quality of life and function by 03/01/21. 02/21/21: LEF score reflects 27 .5% impairment LTG Duration Met Assessment Summary Assessment Pt has met gait, LEF and HEP goals since starting PT. Balance testing deferred today d/t pt feeling poorly d/t a drug withdrawal and she wishes to review HEP and proceed with d/c as planned. Reviewed and revised her HEP and will d /c PT. Recommend orthopedic consult. Pt to con't with exercises at home. D/cd Tree stretch and adductor stretch from HEP today. Physical Therapy Plan Other Referrals/Consults Referrals/Consults Recommended Recommend ortho consult for left hip pain, PT concerned about OA. A screen of lumbar integrity on diagnostic would be helpful as well to r/o spine. 02/09/21: pt stated notified but hasn't heard back yet when approved to go with bad weather.
== END 2021-03-14 08:32 | disposition home or self-care (01) ==
LOC: PHYS 12:15
PROVIDERS: PCP Internal Medicine; Referring Provider Internal Medicine; Visit Provider Internal Medicine
DX: M76.32 Iliotibial band syndrome, left leg (principal)
CPT/HCPCS: 97010; 97110; 97116; 97140; 97161; 97535

== ENCOUNTER → 2021-04-13 09:55 | Outpatient (CLI) | payer MEDICARE, SELFPAY ==
[2021-04-13 11:10] LABS: Add Manual Diff / Slide Review NO; Basophils Absolute Auto 0 /uL (0-100); Basophils Percent Auto 0.7 % (0-2); Eosinophils Absolute Auto 100 /uL (0-450); Eosinophils Percent Auto 1.9 % (2-4); Hemoglobin 14.1 g/dL (12.0-16.0); Lymphocytes Absolute Auto 800 /uL (1100-4500); Lymphocytes Percent Auto 13.9 % (25-40); Mean Corpuscular HGB Conc 33.5 % (30-36); Mean Corpuscular Hemoglobin 30.2 PG (26-34); Mean Corpuscular Volume 90.2 fL (80-100); Monocytes Absolute Auto 500 /uL (0-900); Monocytes Percent Auto 8.7 % (3-14); Neutrophils Absolute Auto 4100 /uL (1500-7000); Neutrophils Percent Auto 74.8 % (50-75); Platelet Count 239 X10^3/uL (150-400); Red Blood Cell Count 4.66 X10^6/uL (4.0-5.2); Red Cell Distribution Width 13.1 % (11.6-14.8); White Blood Cell Count 5.5 X10^3/uL (4.5-11.0)
[2021-04-13 11:31] LABS: Alanine Aminotransferase 42 IU/L (<35); Albumin 4.5 g/dL (3.5-5.0); Albumin Globulin Ratio 1.5 (1.0-2.8); Alkaline Phosphatase 95 U/L (38-126); Aspartate Aminotransferase 36 IU/L (14-36); BUN Creatinine Ratio 16.7 (6-22); Bilirubin Total 0.6 mg/dL (0.2-1.3); Blood Urea Nitrogen 13 mg/dL (7-17); C-Reactive Protein Quant < 0.5 mg/dL (<1.0); Calcium 9.7 mg/dL (8.4-10.2); Carbon Dioxide 30 mmol/L (22-32); Chloride 102 mmol/L (98-107); Erythrocyte Sedimentation Rate 5 MM/HR (0-20); Estimated Glomerular Filt Rate > 60.0 mL/min (>60); Glucose 85 mg/dL (80-110); HEMOLYSIS < 15 (0-50); Potassium 4.5 mmol/L (3.4-5.1); Sodium 137 mmol/L (137-145); Total Protein 7.5 g/dL (6.3-8.2)
[2021-04-13 12:04] LABS: TSH w/ Reflex to FT4 2.59 uIU/mL (0.47-4.68)
== END ==
PROVIDERS: PCP Internal Medicine; Referring Provider Internal Medicine; Visit Provider Internal Medicine
DX: E78.2 Mixed hyperlipidemia (principal); I10 Essential (primary) hypertension
CPT/HCPCS: 36415; 80053; 84443; 85025; 85651; 86140

== ENCOUNTER 2021-05-23 13:41 | Emergency (ER) | payer MEDICARE, SELFPAY ==
[2021-05-23 13:46] VITALS: BP 149/74; PULSE 75; RESP 22; TEMP 36.8; O2SAT 99
[2021-05-23 14:03] VITALS: O2SAT 100
[2021-05-23 14:04] VITALS: BP 165/77; PULSE 78; O2SAT 100
[2021-05-23 14:11] LABS: Add Manual Diff / Slide Review NO; Basophils Absolute Auto 0 /uL (0-100); Basophils Percent Auto 0.6 % (0-2); Eosinophils Absolute Auto 100 /uL (0-450); Eosinophils Percent Auto 0.8 % (2-4); Hematocrit 42.2 % (36-46); Hemoglobin 14.2 g/dL (12.0-16.0); Lymphocytes Absolute Auto 900 /uL (1100-4500); Lymphocytes Percent Auto 12.5 % (25-40); Mean Corpuscular HGB Conc 33.6 % (30-36); Mean Corpuscular Hemoglobin 30.3 PG (26-34); Mean Corpuscular Volume 90.1 fL (80-100); Monocytes Absolute Auto 300 /uL (0-900); Monocytes Percent Auto 5.1 % (3-14); Neutrophils Absolute Auto 5600 /uL (1500-7000); Platelet Count 252 X10^3/uL (150-400); Red Blood Cell Count 4.69 X10^6/uL (4.0-5.2); Red Cell Distribution Width 13.5 % (11.6-14.8); White Blood Cell Count 6.8 X10^3/uL (4.5-11.0)
--- NOTE | 2021-05-23 14:16 | ED.ABDPAIN ---
HPI - Abdominal Pain <MICHAEL Jacob - Last Filed: 05/23/21 14:35> General Chief Complaint: Abdominal Pain Stated Complaint: Abdominal discomfort/left x8days Time Seen by Provider: 05/23/21 13:49 Source: patient Mode of arrival: Ambulatory History of Present Illness HPI narrative: This is a 71-year-old female presents to the emergency department complaining of left lower quadrant pain on and off for the last 2 months. She states she has a history of IBS with constipation and was taking venlafaxine for the last 20 years, states in February she decided to stop taking it, she endorses significant withdrawal symptoms from this which affected her IBS. Weakness but does endorse hot and cold chills for the last week or 2. She states she has felt nauseated each day for the last few days in the morning, states over last 2 days this lower left quadrant pain has gotten worse. She states she has a history of diverticulitis in the past. Primary care provider is Dr. Brenner. She states that [facility] and has an appointment in September. She denies any blood in her stools. She denies any vomiting, she denies any shortness of breath, chest pain, dizziness, back pain. She denies any history of abdominal surgery. She currently takes bupropion, losartan for her hypertension. Related Data Home Medications Medication Instructions Recorded Confirmed cholecalciferol (vitamin D3) 50 50 mcg PO DAILY 10/06/20 04/13/21 mcg (2,000 unit) capsule coenzyme Q10 200 mg capsule 200 mg PO DAILY 10/06/20 04/13/21 glucosamine sulfate 750 mg tablet 1,500 mg PO DAILY 10/06/20 04/13/21 losartan 50 mg tablet 50 mg PO DAILY tab 10/06/20 04/13/21 omega-3 fatty acids 1,000 mg 2,000 mg PO DAILY 10/06/20 04/13/21 capsule Previous Rx's Medication Instructions Recorded conjugated estrogens 0.625 mg/gram See Rx Instructions VAGINAL 3XW 11/15/20 vaginal cream (Premarin) #30 g meloxicam 15 mg tablet 15 mg PO DAILY PRN #30 tab 11/16/20 bupropion HCl 150 mg 24 hr tablet, 150 mg PO QAM #90 tab 04/13/21 extended release ciprofloxacin HCl 500 mg tablet 500 mg PO BID 7 Days #14 tab 05/23/21 metronidazole 500 mg tablet 500 mg PO TID 7 Days #21 tab 05/23/21 ondansetron 4 mg disintegrating 4 mg PO Q8H PRN #7 tab 05/23/21 tablet Allergies Allergy/AdvReac Type Severity Reaction Status Date / Time atorvastatin AdvReac Intermediate muscle Verified 04/13/21 09:27 aches Review of Systems <MICHAEL Jacob - Last Filed: 05/23/21 14:35> Review of Systems Narrative: General: denies fever, chills, malaise, sweats, fatigue Head/Neck: denies headache, neck pain, dizziness Eyes: denies visual changes, eye pain Cardio: denies chest pain, palpitations, edema Respiratory: denies dyspnea, cough, orthopnea GI: Endorses left lower quadrant abdominal pain, denies vomiting, or diarrhea but endorses constipation : denies dysuria, hematuria, urinary retention, frequency or incontinence MSK: denies joint pain, muscle weakness Skin: denies rash, itching, skin lesions or other Neuro: denies numbness, tingling Patient History <MICHAEL aJcob - Last Filed: 05/23/21 14:35> Medical History Hypertension (~01/12/20) Infertility Menopausal state Mitral valve regurgitation (~2018) Mixed hyperlipidemia Osteoarthritis Osteoporosis Wears glasses Surgical History Anesthesia History of bunionectomy of both great toes History of cataract removal with insertion of prosthetic lens (~2020) History of ectopic History of knee surgery History of shoulder surgery History of total left knee replacement (~06/2018) Family History Father Dementia Mother Cancer Grandfather Cancer Grandmother Congestive heart failure Dementia Grandfather Stroke Grandmother Congestive heart failure Social History Smoking Status: Never smoker Smoking Status: Never smoker Exam <MICHAEL Jacob - Last Filed: 05/23/21 14:35> Narrative Exam Narrative: Independently reviewed vitals signs and nursing notes. General: cooperative, comfortable, in no acute distress, well developed and well groomed Head: atraumatic, symmetrical facial expressions Neck: supple, atraumatic, without lymphadenopathy. Eyes: pupils equal round and reactive, EOMI, conjunctiva normal Nose: nares patent, no rhinorrhea Mouth/Throat: uvula midline, moist mucus membranes Cardiovascular: regular rate and rhythm, no peripheral edema, warm extremities Respiratory: normal effort, able to speak in complete sentences, no audible wheezing, stridor, or rales. No retractions or tachypnea. GI: abdomen soft, mildly tender lower left quadrant to palpation, nontender in other quadrants, nondistended, no masses, no exquisite tenderness with exam, without guarding or rebound. No CVA tenderness bilaterally MSK: moves all extremities, ambulatory w/steady gait, neurovascularly intact, no weakness Skin: brisk capillary refill, no rash, no erythema Neuro: normal speech and cognition, A&O x3, normal tone Psych: mental status is grossly normal, congruent mood, normal affect, pleasant and cooperative Initial Vital Signs Initial Vital Signs: Vital Signs Temperature 98.3 F 05/23/21 13:46 Pulse Rate 75 05/23/21 13:46 Respiratory Rate 05/23/21 13:46 Blood Pressure 149/74 H 05/23/21 13:46 Pulse Oximetry 99 05/23/21 13:46 <Yosef Conway DO - Last Filed: 05/24/21 10:33> Initial Vital Signs Initial Vital Signs: Vital Signs Temperature 98.3 F 05/23/21 13:46 Pulse Rate 75 05/23/21 13:46 Respiratory Rate 22 05/23/21 13:46 Blood Pressure 149/74 H 05/23/21 13:46 Pulse Oximetry 99 05/23/21 13:46 Course <BARRIE JacobP - Last Filed: 05/23/21 14:35> Orders Ordered: Discontinued Medications Ciprofloxacin (Ciprofloxacin 250 Mg Tablet) 500 mg PO NOW ONE Stop: 05/23/21 14:18 Last Admin: 05/23/21 14:27 Dose: 500 mg Documented by: MONET Metronidazole (Metronidazole 500 Mg Tablet) 500 mg PO NOW ONE Stop: 05/23/21 14:19 Last Admin: 05/23/21 14:26 Dose: 500 mg Documented by: MONET Ondansetron HCl (Ondansetron 4 Mg Odt) 4 mg SL NOW ONE Stop: 05/23/21 14:18 Last Admin: 05/23/21 14:27 Dose: 4 mg Documented by: MONET Vital Signs Vital signs: Vital Signs - 8 hr 05/23/21 13:46 Temperature 98.3 F Pulse Rate 75 Respiratory Rate 22 Blood Pressure 149/74 H Pulse Oximetry 99 <Yosef Conway DO - Last Filed: 05/24/21 10:33> Orders Ordered: Discontinued Medications Ciprofloxacin (Ciprofloxacin 250 Mg Tablet) 500 mg PO NOW ONE Stop: 05/23/21 14:18 Last Admin: 05/23/21 14:27 Dose: 500 mg Documented by: MONET Metronidazole (Metronidazole 500 Mg Tablet) 500 mg PO NOW ONE Stop: 05/23/21 14:19 Last Admin: 05/23/21 14:26 Dose: 500 mg Documented by: MONET Ondansetron HCl (Ondansetron 4 Mg Odt) 4 mg SL NOW ONE Stop: 05/23/21 14:18 Last Admin: 05/23/21 14:27 Dose: 4 mg Documented by: MONET Vital Signs Vital signs: Vital Signs - 8 hr 05/23/21 13:46 Temperature 98.3 F Pulse Rate 75 Respiratory Rate 22 Blood Pressure 149/74 H Pulse Oximetry 99 MDM - Abdominal Pain <MICHAEL Jacob - Last Filed: 05/23/21 14:35> Lab Data Result diagrams: 05/23/21 14:00 05/23/21 14:00 Labs: Lab Results 05/23/21 05/23/21 Range/Units 14:00 14:00 WBC 6.8 (4.5-11.0) X10^3/uL RBC 4.69 (4.0-5.2) X10^6/uL Hgb 14.2 (12.0-16.0) g/dL Hct 42.2 (36-46) % MCV 90.1 (80-100) fL MCH 30.3 (26-34) PG MCHC 33.6 (30-36) % RDW 13.5 (11.6-14.8) % Plt Count 252 (150-400) X10^3/uL Neut % (Auto) 81.0 H (50-75) % Lymph % (Auto) 12.5 L (25-40) % [place] % (Auto) 5.1 (3-14) % Eos % (Auto) 0.8 L (2-4) % Baso % (Auto) 0.6 (0-2) % Neut # (Auto) 5600 (5017-7306) /uL Lymph # (Auto) 900 L (4452-4024) /uL [place] # (Auto) 300 (0-900) /uL Eos # (Auto) 100 (0-450) /uL Baso # (Auto) 0 (0-100) /uL Sodium 138 (137-145) mmol/L Potassium 3.9 (3.4-5.1) mmol/L Chloride 102 (98-107) mmol/L Carbon Dioxide 29 (22-32) mmol/L BUN 12 (7-17) mg/dL Creatinine 0.79 (0.52-1.04) mg/dL Estimated GFR > 60.0 (>60) mL/min BUN/Creatinine Ratio 15.2 (6-22) Glucose 143 H (80-110) mg/dL Calcium 9.3 (8.4-10.2) mg/dL Total Bilirubin 0.4 (0.2-1.3) mg/dL AST 31 (14-36) IU/L ALT 25 (<35) IU/L Alkaline Phosphatase 88 (38-126) U/L Total Protein 7.9 (6.3-8.2) g/dL Albumin 4.6 (3.5-5.0) g/dL Globulin 3.3 (1.7-4.1) g/dL Albumin/Globulin Ratio 1.4 (1.0-2.8) Lipase 58 (23-300) U/L [facility] Narrative Medical decision making narrative: This is a pleasant 71-year-old female with history of diverticulitis in the past, hypertension on losartan, MVR, osteoarthritis and osteoporosis who presents to the emergency department complaining of left lower quadrant pain worse over the last 2 days but has been present over last 2 months. She endorses getting a referral to Gastroenterology but her colonoscopy is not until September. She denies any blood in her stool, any vomiting or diarrhea. She has a history of IBS with constipation, stop taking her venlafaxine in February, states she quit cold turkey went through withdrawals that affected her IBS. She states she was taking MiraLax daily, no longer is going through that significant of constipation but she has had this ongoing pain and tenderness in her lower left quadrant similar to the last time she had diverticulitis. Patient's lab work is mostly unremarkable, no leukocytosis although she does have a left shift, liver enzymes are normal, lipase is 58. Patient did not have any significant or exquisite tenderness on exam. This is most likely diverticulitis due to her history of this in the past. She has an upcoming colonoscopy but states that she has been nauseated and feeling poorly due to this lower left quadrant issue for the last few weeks especially. No peritoneal signs on abdominal exam. Patient remains p.o. tolerant. Serial abdominal exam without increase in abdominal pain. Given history and exam, low suspicion for acute abdominal process, such as acute cholecystitis, pancreatitis, perforated viscus, atypical appendicitis, colitis, diverticulitis or torsion. Extensive conversation about ER return precautions and need for close follow-up. Patient is appropriate and amenable to discharge home. Vital signs are stable on repeat examination is unremarkable. Patient has been informed of results. Patient has been given strict return to ER precautions for any new or worsening symptoms. Patient understands to follow up closely with outpatient providers as instructed. Patient understands plan and agrees to discharge home. All questions and concerns answered at this time. <Yosef Conway DO - Last Filed: 05/24/21 10:33> Lab Data Labs: Lab Results 05/23/21 05/23/21 Range/Units 14:00 14:00 WBC 6.8 (4.5-11.0) X10^3/uL RBC 4.69 (4.0-5.2) X10^6/uL Hgb 14.2 (12.0-16.0) g/dL Hct 42.2 (36-46) % MCV 90.1 (80-100) fL MCH 30.3 (26-34) PG MCHC 33.6 (30-36) % RDW 13.5 (11.6-14.8) % Plt Count 252 (150-400) X10^3/uL Neut % (Auto) 81.0 H (50-75) % Lymph % (Auto) 12.5 L (25-40) % [place] % (Auto) 5.1 (3-14) % Eos % (Auto) 0.8 L (2-4) % Baso % (Auto) 0.6 (0-2) % Neut # (Auto) 5600 (5034-2449) /uL Lymph # (Auto) 900 L (3951-6593) /uL [place] # (Auto) 300 (0-900) /uL Eos # (Auto) 100 (0-450) /uL Baso # (Auto) 0 (0-100) /uL Sodium 138 (137-145) mmol/L Potassium 3.9 (3.4-5.1) mmol/L Chloride 102 (98-107) mmol/L Carbon Dioxide 29 (22-32) mmol/L BUN 12 (7-17) mg/dL Creatinine 0.79 (0.52-1.04) mg/dL Estimated GFR > 60.0 (>60) mL/min BUN/Creatinine Ratio 15.2 (6-22) Glucose 143 H (80-110) mg/dL Calcium 9.3 (8.4-10.2) mg/dL Total Bilirubin 0.4 (0.2-1.3) mg/dL AST 31 (14-36) IU/L ALT 25 (<35) IU/L Alkaline Phosphatase 88 (38-126) U/L Total Protein 7.9 (6.3-8.2) g/dL Albumin 4.6 (3.5-5.0) g/dL Globulin 3.3 (1.7-4.1) g/dL Albumin/Globulin Ratio 1.4 (1.0-2.8) Lipase 58 (23-300) U/L Discharge Plan Departure Patient Disposition: Home Clinical Impression: Diverticulitis Instructions: Diverticulitis Activity Restrictions/Additional Instructions: *You have been diagnosed with diverticulitis in the setting of history of diverticular disease. Please take Flagyl 3 times a day for the next 7 days plus ciprofloxacin twice a day for the same amount of days. Please follow-up with Dr. Brenner has scheduled, and gastroenterology as scheduled. If you develop any nausea vomiting, fevers, exquisite abdominal pain, please return to the emergency department for another evaluation. Your lab work today does not show any significant infection, your liver enzymes are normal, no signs of pancreatitis. Follow a clear liquid diet for the next 24-48 hours until you start feeling better. Thank you for trusting us with your care, please return to the emergency department for any other concerns. Please avoid taking Zofran for nausea unless you feel very sick. It can interact with one of the antibiotics and affect your heart rhythm. It is okay for occasional use. *What to do: *Please continue to take your regular medications as directed. [x ] New medication prescriptions sent to your pharmacy: [ [facility]] [ ] New medication written as a paper prescription [ ] No new medications given *Please follow up with your primary care provider in 2-3 days, call for an appointment. Let them know you were seen in the Emergency Department and that we asked that you be seen for follow-up. We will electronically transmit a record of today's note if your PCP is in our system *If you do not have a primary care provider please contact [phone] to establish care with one of the [facility] primary care providers. *Return to Emergency Department if you should have any new, worsening or concerning symptoms, such as [fever greater than 101F, chills, worsening pain, persistent vomiting or other bothersome symptoms] Prescriptions: New ciprofloxacin HCl 500 mg tablet 500 mg PO BID 7 Days Qty: 14 0RF metronidazole 500 mg tablet 500 mg PO TID 7 Days Qty: 21 0RF ondansetron 4 mg tablet,disintegrating 4 mg PO Q8H PRN (Reason: nausea or vomiting) Qty: 7 0RF No Action Premarin 0.625 mg/gram cream See Rx Instructions vaginal 3XW Qty: 30 3RF Label Comments: PLACE 1/4 APPLICATORFUL VAGINALLY 3 TIME A WEEK FOR ATROPHY OF VULVA Rx Instructions: 1/4 APPLICATOR vaginal 3 times a week FOR ATROPHY OF VULVA; meloxicam 15 mg tablet 15 mg PO DAILY PRN (Reason: osteoarthritis) Qty: 30 1RF losartan 50 mg tablet 50 mg PO DAILY 0RF Label Comments: TAKE 1 TABLET BY MOUTH EVERY DAY glucosamine sulfate 750 mg tablet 1,500 mg PO DAILY 0RF Rx Instructions: administer with a meal cholecalciferol (vitamin D3) 50 mcg (2,000 unit) capsule 50 mcg PO DAILY 0RF omega-3 fatty acids 1,000 mg capsule 2,000 mg PO DAILY 0RF coenzyme Q10 200 mg capsule 200 mg PO DAILY 0RF bupropion HCl 150 mg tablet extended release 24 hr 150 mg PO QAM Qty: 90 3RF Referrals: William Brenner MD [Primary Care Provider] - <Yosef Conway DO - Last Filed: 05/24/21 10:33> Cosign ED Attending Yeseniaature Attestation: I was immediately available in the department for consultation. This documentation has been reviewed and I agree with assessment and plan. Supervised by Yosef Conway DO
[2021-05-23 14:20] LABS: Alanine Aminotransferase 25 IU/L (<35); Albumin 4.6 g/dL (3.5-5.0); Albumin Globulin Ratio 1.4 (1.0-2.8); Alkaline Phosphatase 88 U/L (38-126); Aspartate Aminotransferase 31 IU/L (14-36); BUN Creatinine Ratio 15.2 (6-22); Bilirubin Total 0.4 mg/dL (0.2-1.3); Blood Urea Nitrogen 12 mg/dL (7-17); Calcium 9.3 mg/dL (8.4-10.2); Carbon Dioxide 29 mmol/L (22-32); Chloride 102 mmol/L (98-107); Estimated Glomerular Filt Rate > 60.0 mL/min (>60); Globulin 3.3 g/dL (1.7-4.1); Glucose 143 mg/dL (80-110); HEMOLYSIS < 15 (0-50); Lipase 58 U/L (23-300); Potassium 3.9 mmol/L (3.4-5.1); Sodium 138 mmol/L (137-145); Total Protein 7.9 g/dL (6.3-8.2)
[2021-05-23] MEDS: metroNIDAZOLE 500 MG TABLET PO (14:26)
[2021-05-23] MEDS: CIPROFLOXACIN 250 MG TABLET 500 MG PO (14:27)
[2021-05-23] MEDS: ONDANSETRON 4 MG ODT SL (14:27)
== END 2021-05-23 14:38 | disposition home or self-care (01) ==
PROVIDERS: Emergency Medicine; Emergency Provider Nurse Practitioner Critical Care Medicine; PCP Internal Medicine
DX: K57.92 Diverticulitis of intestine, part unspecified, without perforation or abscess without bleeding (principal); I10 Essential (primary) hypertension
CPT/HCPCS: 36415; 80053; 83690; 85025; 93005; 93010; 99284

== ENCOUNTER → 2021-06-27 09:51 | Outpatient (CLI) | payer MEDICARE, SELFPAY ==
[2021-06-27 11:22] LABS: BUN Creatinine Ratio 16.3 (6-22); Blood Urea Nitrogen 13 mg/dL (7-17); Estimated Glomerular Filt Rate > 60 mL/min (>60)
== END ==
PROVIDERS: PCP Internal Medicine; Referring Provider Internal Medicine; Visit Provider Internal Medicine
DX: I10 Essential (primary) hypertension (principal)
CPT/HCPCS: 36415; 82565; 84520

== ENCOUNTER → 2021-06-30 09:57 | Outpatient (CLI) | payer MEDICARE, SELFPAY ==
--- NOTE | 2021-06-30 10:56 | DI.CT.S_ITS ---
PROCEDURE: CT ABDOMEN PELVIS W CON INDICATIONS: llq pain/diverticulitis TECHNIQUE: After the administration of oral and intravenous contrast, axial sections were acquired from the lung bases to the pubic symphysis. Coronal and sagittal reformats were performed. For radiation dose reduction, the following was used: automated exposure control, adjustment of mA and/or kV according to patient size. COMPARISON:None. FINDINGS: Image quality: Excellent. Lung bases: Unremarkable. Heart: No significant findings. ABDOMEN: Liver: Unremarkable. Gallbladder: Unremarkable. Biliary ducts: Unremarkable. Pancreas: Unremarkable. Spleen: Unremarkable. Adrenal Glands: Unremarkable. Kidneys and Ureters: Unremarkable. Stomach and Bowel: Stomach, small bowel loops, and colon are unremarkable. The appendix is not visualized; however there is no discrete right lower quadrant fluid or fat stranding to suggest acute appendicitis. Peritoneum: No abnormal intraperitoneal fluid. No free air. Ventral Wall: No hernia. Abdominal Nodes: No retroperitoneal or mesenteric adenopathy by size criteria. Vessels: Aorta and inferior vena cava are normal in size. PELVIS: Pelvic Organs: Unremarkable. Bladder: Unremarkable. Pelvic Nodes: No enlarged lymph nodes. Miscellaneous: No inguinal hernias are seen. Bones: Unremarkable. IMPRESSION: 1. No acute intra-abdominal findings. The appendix is not visualized; however there are no ancillary findings to suggest acute appendicitis. 2. No colonic diverticulosis or findings to suggest acute diverticulitis. Dictated by: Jacqui Perez M.D. on 06/30/2021 at 14:05 Approved by: Jacqui Perez M.D. on 06/30/2021 at 14:10
== END ==
PROVIDERS: PCP Internal Medicine; Referring Provider Internal Medicine; Visit Provider Internal Medicine
DX: K57.92 Diverticulitis of intestine, part unspecified, without perforation or abscess without bleeding (principal); R10.32 Left lower quadrant pain
CPT/HCPCS: 74177

== ENCOUNTER → 2021-12-06 07:46 | Outpatient (CLI) | payer MEDICARE, SELFPAY ==
--- NOTE | 2021-12-06 | DI.MG.S_ITS ---
BILATERAL DIGITAL SCREENING MAMMOGRAM 3D/2D WITH CAD: 12/06/2021 CLINICAL: Routine screening. Comparison is made to exam dated: 07/02/2020 mammogram - outside location. Both breasts are heterogeneously dense, which may obscure small masses (category c / 51-75% glandular tissue). Current study was also evaluated with a Computer Aided Detection (CAD) system. There are benign vascular calcifications in both breasts. No significant masses, calcifications, or other findings are seen in either breast. There has been no significant interval change. IMPRESSION: BENIGN There is no mammographic evidence of malignancy. A 1 year screening mammogram is recommended. Based on the Tyrer Cuzick model (a risk assessment model) the patient's lifetime risk is 6.4% and her 10 year risk is 4.1%. According to the ACR, ACS, and NCCN guidelines, an annual breast MRI exam along with mammogram is recommended if the patient's lifetime risk is 20% or greater. This exam was interpreted at Station ID: [id number]. NOTE: For mammograms, a report in lay terms will be sent to the patient. Approximately 15% of breast malignancies will not be visualized mammographically. In the management of a palpable breast mass, a negative mammogram must not discourage biopsy of a clinically suspicious lesion. Electronically Signed By: Jacqui zambrnao/prashanth:12/06/2021 12:19:48 letter sent: Normal Exam ACR BI-RADS Category 2: Benign Finding(s) 3342F
== END ==
PROVIDERS: PCP Internal Medicine; Referring Provider Internal Medicine; Visit Provider Internal Medicine
DX: Z12.31 Encounter for screening mammogram for malignant neoplasm of breast (principal)
CPT/HCPCS: 77063; 77067

== ENCOUNTER → 2022-01-10 07:43 | Outpatient (CLI) | payer MEDICARE, SELFPAY ==
[2022-01-10 09:15] LABS: Alanine Aminotransferase 39 IU/L (<35); Albumin 3.9 g/dL (3.5-5.0); Albumin Globulin Ratio 1.4 (1.0-2.8); Alkaline Phosphatase 86 U/L (38-126); Aspartate Aminotransferase 32 IU/L (14-36); BUN Creatinine Ratio 24.4 (6-22); Bilirubin Total 0.4 mg/dL (0.2-1.3); Blood Urea Nitrogen 21 mg/dL (7-17); Calcium 8.9 mg/dL (8.4-10.2); Carbon Dioxide 28 mmol/L (22-32); Chloride 104 mmol/L (98-107); Cholesterol 213 mg/dL (140-199); Estimated Glomerular Filt Rate > 60 mL/min (>60); Globulin 2.7 g/dL (1.7-4.1); Glucose 78 mg/dL (80-110); HDL Cholesterol 81 mg/dL (40-60); HEMOLYSIS < 15 (0-50); LDL Cholesterol Calculated 122 mg/dL (<100); Potassium 4.5 mmol/L (3.4-5.1); Sodium 138 mmol/L (137-145); Total Protein 6.6 g/dL (6.3-8.2); Triglycerides 48 mg/dL (35-150)
== END ==
PROVIDERS: PCP Internal Medicine; Referring Provider Internal Medicine; Visit Provider Internal Medicine
DX: E78.2 Mixed hyperlipidemia (principal); I10 Essential (primary) hypertension
CPT/HCPCS: 36415; 80053; 80061

== ENCOUNTER → 2022-08-01 06:54 | Outpatient (CLI) | payer MEDICARE, SELFPAY ==
[2022-08-01 09:52] LABS: Alanine Aminotransferase 25 IU/L (<35); Albumin Globulin Ratio 1.6 (1.0-2.8); Alkaline Phosphatase 87 U/L (38-126); Aspartate Aminotransferase 26 IU/L (14-36); BUN Creatinine Ratio 22.4 (6-22); Bilirubin Total 0.4 mg/dL (0.2-1.3); Blood Urea Nitrogen 17 mg/dL (7-17); Calcium 8.7 mg/dL (8.4-10.2); Carbon Dioxide 29 mmol/L (22-32); Chloride 103 mmol/L (98-107); Cholesterol 216 mg/dL (140-199); Estimated Glomerular Filt Rate > 60 mL/min (>60); Globulin 2.5 g/dL (1.7-4.1); Glucose 83 mg/dL (80-110); HDL Cholesterol 87 mg/dL (40-60); HEMOLYSIS 26 (0-50); LDL Cholesterol Calculated 119 mg/dL (<100); Potassium 4.7 mmol/L (3.4-5.1); Sodium 137 mmol/L (137-145); Total Protein 6.5 g/dL (6.3-8.2); Triglycerides 51 mg/dL (35-150)
== END ==
PROVIDERS: PCP Internal Medicine; Referring Provider Internal Medicine; Visit Provider Internal Medicine
DX: E78.2 Mixed hyperlipidemia (principal); I10 Essential (primary) hypertension
CPT/HCPCS: 36415; 80053; 80061

== ENCOUNTER → 2022-12-13 16:19 | Outpatient (CLI) | payer MEDICARE, SELFPAY ==
--- NOTE | 2022-12-13 16:23 | DI.MG.S_ITS ---
BILATERAL DIGITAL SCREENING MAMMOGRAM 3D/2D WITH CAD: 12/13/2022 CLINICAL: Routine screening. Comparison is made to exams dated: 12/06/2021 mammogram - [facility] and 07/02/2020 mammogram - outside [facility]. Both breasts are heterogeneously dense, which may obscure small masses (category c / 51-75% glandular tissue). Current study was also evaluated with a Computer Aided Detection (CAD) system. There are benign vascular calcifications in both breasts. No significant masses, calcifications, or other findings are seen in either breast. There has been no significant interval change. IMPRESSION: BENIGN There is no mammographic evidence of malignancy. A 1 year screening mammogram is recommended. Based on the Tyrer Cuzick model (a risk assessment model) the patient's lifetime risk is 6.1% and her 10 year risk is 4.2%. According to the ACR, ACS, and NCCN guidelines, an annual breast MRI exam along with mammogram is recommended if the patient's lifetime risk is 20% or greater. This exam was interpreted at Station ID: [id number]. NOTE: For mammograms, a report in lay terms will be sent to the patient. Approximately 15% of breast malignancies will not be visualized mammographically. In the management of a palpable breast mass, a negative mammogram must not discourage biopsy of a clinically suspicious lesion. Electronically Signed By: Sean antoine/prashanth:12/14/2022 07:13:16 letter sent: Normal Exam ACR BI-RADS Category 2: Benign Finding(s) 3342F
== END ==
PROVIDERS: PCP Internal Medicine; Referring Provider Internal Medicine; Visit Provider Internal Medicine
DX: Z12.31 Encounter for screening mammogram for malignant neoplasm of breast (principal)
CPT/HCPCS: 77063; 77067

== ENCOUNTER → 2022-12-19 13:40 | Outpatient (CLI) | payer MEDICARE, SELFPAY | PROVIDERS: PCP Internal Medicine; Referring Provider Internal Medicine; Visit Provider Internal Medicine | DX: I49.9 Cardiac arrhythmia, unspecified (principal) | CPT/HCPCS: 93242 ==

== ENCOUNTER → 2023-01-16 06:30 | Outpatient (CLI) | payer MEDICARE, SELFPAY ==
[2023-01-16 08:03] LABS: Alanine Aminotransferase 24 IU/L (<35); Albumin 3.9 g/dL (3.5-5.0); Albumin Globulin Ratio 1.4 (1.0-2.8); Alkaline Phosphatase 77 U/L (38-126); Aspartate Aminotransferase 29 IU/L (14-36); BUN Creatinine Ratio 22.5 (6-22); Bilirubin Total 0.6 mg/dL (0.2-1.3); Blood Urea Nitrogen 18 mg/dL (7-17); Calcium 9.4 mg/dL (8.4-10.2); Carbon Dioxide 29 mmol/L (22-32); Chloride 103 mmol/L (98-107); Cholesterol 207 mg/dL (140-199); Estimated Glomerular Filt Rate > 60 mL/min (>60); Globulin 2.8 g/dL (1.7-4.1); Glucose 84 mg/dL (80-110); HDL Cholesterol 86 mg/dL (40-60); HEMOLYSIS < 15 (0-50); LDL Cholesterol Calculated 106 mg/dL (<100); Potassium 4.2 mmol/L (3.4-5.1); Sodium 138 mmol/L (137-145); Total Protein 6.7 g/dL (6.3-8.2); Triglycerides 76 mg/dL (35-150)
== END ==
PROVIDERS: PCP Internal Medicine; Referring Provider Internal Medicine; Visit Provider Internal Medicine
DX: I10 Essential (primary) hypertension (principal); E78.2 Mixed hyperlipidemia
CPT/HCPCS: 36415; 80053; 80061

== ENCOUNTER → 2023-01-28 09:26 | Outpatient (CLI) | payer MEDICARE, SELFPAY ==
[2023-01-28 10:56] LABS: Add Manual Diff / Slide Review NO; Basophils Absolute Auto 0 /uL (0-100); Basophils Percent Auto 0.6 % (0-2); Eosinophils Absolute Auto 100 /uL (0-450); Eosinophils Percent Auto 1.6 % (2-4); Hematocrit 39.5 % (36-46); Hemoglobin 13.5 g/dL (12.0-16.0); Lymphocytes Absolute Auto 800 /uL (1100-4500); Lymphocytes Percent Auto 11.8 % (25-40); Mean Corpuscular Hemoglobin 30.9 PG (26-34); Mean Corpuscular Volume 90.9 fL (80-100); Monocytes Absolute Auto 400 /uL (0-900); Monocytes Percent Auto 6.5 % (3-14); Neutrophils Absolute Auto 5100 /uL (1500-7000); Neutrophils Percent Auto 79.5 % (50-75); Platelet Count 280 X10^3/uL (150-400); Red Blood Cell Count 4.35 X10^6/uL (4.0-5.2); Red Cell Distribution Width 12.8 % (11.6-14.8); White Blood Cell Count 6.4 X10^3/uL (4.5-11.0)
[2023-01-28 11:04] LABS: C-Reactive Protein Quant < 0.5 mg/dL (<1.0)
[2023-01-28 11:14] LABS: Erythrocyte Sedimentation Rate 8 MM/HR (0-20)
[2023-01-28 11:33] LABS: TSH w/ Reflex to FT4 2.42 uIU/mL (0.47-4.68)
== END ==
PROVIDERS: PCP Internal Medicine; Referring Provider Internal Medicine; Visit Provider Internal Medicine
DX: I10 Essential (primary) hypertension (principal); E78.2 Mixed hyperlipidemia
CPT/HCPCS: 36415; 84443; 85025; 85651; 86140

== ENCOUNTER → 2023-07-24 06:50 | Outpatient (CLI) | payer MEDICARE, SELFPAY ==
[2023-07-24 08:54] LABS: Alanine Aminotransferase 20 IU/L (<35); Albumin 3.9 g/dL (3.5-5.0); Albumin Globulin Ratio 1.6 (1.0-2.8); Alkaline Phosphatase 108 U/L (38-126); Aspartate Aminotransferase 26 IU/L (14-36); BUN Creatinine Ratio 20.5 (6-22); Bilirubin Total 0.4 mg/dL (0.2-1.3); Blood Urea Nitrogen 16 mg/dL (7-17); Calcium 8.9 mg/dL (8.4-10.2); Carbon Dioxide 30 mmol/L (22-32); Chloride 104 mmol/L (98-107); Cholesterol 215 mg/dL (140-199); Estimated Glomerular Filt Rate > 60 mL/min (>60); Globulin 2.5 g/dL (1.7-4.1); Glucose 82 mg/dL (80-110); HDL Cholesterol 103 mg/dL (40-60); HEMOLYSIS < 15 (0-50); LDL Cholesterol Calculated 100 mg/dL (<100); Potassium 4.6 mmol/L (3.4-5.1); Sodium 139 mmol/L (137-145); Total Protein 6.4 g/dL (6.3-8.2); Triglycerides 59 mg/dL (35-150)
== END ==
PROVIDERS: PCP Internal Medicine; Referring Provider Internal Medicine; Visit Provider Internal Medicine
DX: E78.2 Mixed hyperlipidemia (principal)
CPT/HCPCS: 36415; 80053; 80061

== ENCOUNTER → 2023-11-06 11:28 | Outpatient (CLI) | payer MEDICARE, SELFPAY ==
--- NOTE | 2023-11-06 11:31 | EKG_ITS ---
[place] [id number] [address] [place] [id number] Test Date: 2023-11-06 Pat Name: Shea Pinto Department: [facility] Room: Gender: Female Knot Cutter: LUCINDA : 1950 Requested By: Order Number: [id number] Reading MD: William Brenner MD Measurements Intervals [place] Rate: 59 P: 247 WV: 146 QRS: 19 QRSD: 122 T: -75 QT: 494 QTc: 489 Interpretive Statements Unusual P axis, possible ectopic atrial bradycardia with premature supraventricular complexes Inferior infarct , age undetermined Anterior infarct , age undetermined NO SIGNIFICANT CHANGE FROM PRIOR TRACING Electronically Signed On 11-07-2023 8:25:54 PDT by William Brenner MD
[2023-11-06 13:12] LABS: Add Manual Diff / Slide Review NO; Basophils Absolute Auto 100 /uL (0-100); Eosinophils Absolute Auto 100 /uL (0-450); Eosinophils Percent Auto 2.3 % (2-4); Hematocrit 39.6 % (36-46); Hemoglobin 13.4 g/dL (12.0-16.0); Lymphocytes Absolute Auto 1100 /uL (1100-4500); Lymphocytes Percent Auto 17.1 % (25-40); Mean Corpuscular HGB Conc 33.9 % (30-36); Mean Corpuscular Hemoglobin 30.9 PG (26-34); Mean Corpuscular Volume 91.3 fL (80-100); Monocytes Absolute Auto 500 /uL (0-900); Monocytes Percent Auto 7.8 % (3-14); Neutrophils Absolute Auto 4500 /uL (1500-7000); Neutrophils Percent Auto 71.8 % (50-75); Platelet Count 271 X10^3/uL (150-400); Red Blood Cell Count 4.34 X10^6/uL (4.0-5.2); Red Cell Distribution Width 13.7 % (11.6-14.8); White Blood Cell Count 6.3 X10^3/uL (4.5-11.0)
[2023-11-06 13:21] LABS: Hemoglobin A1C% w Est Avg Glu 5.1 % (4.0-6.0)
[2023-11-06 13:41] LABS: BUN Creatinine Ratio 22.5 (6-22); Blood Urea Nitrogen 18 mg/dL (7-17); Calcium 9.6 mg/dL (8.4-10.2); Carbon Dioxide 26 mmol/L (22-32); Chloride 102 mmol/L (98-107); Estimated Glomerular Filt Rate > 60 mL/min (>60); Glucose 87 mg/dL (80-110); HEMOLYSIS < 15 (0-50); Potassium 4.4 mmol/L (3.4-5.1); Sodium 135 mmol/L (137-145)
== END ==
PROVIDERS: PCP Internal Medicine; Referring Provider Orthopaedic Surgery Foot and Ankle Surgery; Visit Provider Orthopaedic Surgery Foot and Ankle Surgery
DX: Z01.818 Encounter for other preprocedural examination (principal); R73.9 Hyperglycemia, unspecified; Z01.812 Encounter for preprocedural laboratory examination
CPT/HCPCS: 36415; 80048; 83036; 85025; 93005; 93010

== ENCOUNTER → 2024-05-12 06:44 | Outpatient (CLI) | payer MEDICARE, SELFPAY ==
[2024-05-12 08:24] LABS: Alanine Aminotransferase 22 IU/L (<35); Albumin 4.3 g/dL (3.5-5.0); Albumin Globulin Ratio 1.7 (1.0-2.8); Alkaline Phosphatase 105 U/L (38-126); Aspartate Aminotransferase 27 IU/L (14-36); BUN Creatinine Ratio 21.1 (6-22); Bilirubin Total 0.5 mg/dL (0.2-1.3); Blood Urea Nitrogen 19 mg/dL (7-17); Calcium 9.6 mg/dL (8.4-10.2); Carbon Dioxide 28 mmol/L (22-32); Chloride 102 mmol/L (98-107); Cholesterol 246 mg/dL (140-199); Estimated Glomerular Filt Rate > 60 mL/min (>60); Globulin 2.5 g/dL (1.7-4.1); Glucose 89 mg/dL (80-110); HDL Cholesterol 102 mg/dL (40-60); HEMOLYSIS < 15 (0-50); LDL Cholesterol Calculated 134 mg/dL (<100); Potassium 4.4 mmol/L (3.4-5.1); Sodium 138 mmol/L (137-145); Total Protein 6.8 g/dL (6.3-8.2); Triglycerides 50 mg/dL (35-150)
== END ==
PROVIDERS: PCP Internal Medicine; Referring Provider Internal Medicine; Visit Provider Internal Medicine
DX: I10 Essential (primary) hypertension (principal); E78.2 Mixed hyperlipidemia
CPT/HCPCS: 36415; 80053; 80061

== ENCOUNTER → 2024-07-17 11:58 | Outpatient (CLI) | payer MEDICARE, SELFPAY ==
[2024-07-17 12:37] LABS: Add Manual Diff / Slide Review NO; Basophils Absolute Auto 100 /uL (0-100); Basophils Percent Auto 1.1 % (0-2); Eosinophils Absolute Auto 100 /uL (0-450); Eosinophils Percent Auto 1.5 % (2-4); Hematocrit 41.4 % (36-46); Hemoglobin 14.1 g/dL (12.0-16.0); Lymphocytes Absolute Auto 900 /uL (1100-4500); Lymphocytes Percent Auto 15.5 % (25-40); Mean Corpuscular HGB Conc 34.1 % (30-36); Mean Corpuscular Volume 90.8 fL (80-100); Monocytes Absolute Auto 400 /uL (0-900); Monocytes Percent Auto 7.2 % (3-14); Neutrophils Absolute Auto 4100 /uL (1500-7000); Neutrophils Percent Auto 74.7 % (50-75); Platelet Count 255 X10^3/uL (150-400); Red Blood Cell Count 4.56 X10^6/uL (4.0-5.2); Red Cell Distribution Width 13.5 % (11.6-14.8); White Blood Cell Count 5.5 X10^3/uL (4.5-11.0)
[2024-07-17 13:02] LABS: C-Reactive Protein Quant < 0.5 mg/dL (<1.0)
[2024-07-17 13:18] LABS: Erythrocyte Sedimentation Rate 8 MM/HR (0-20)
== END ==
PROVIDERS: PCP Internal Medicine; Referring Provider Orthopaedic Surgery Foot and Ankle Surgery; Visit Provider Orthopaedic Surgery Foot and Ankle Surgery
DX: M25.561 Pain in right knee (principal); Z96.651 Presence of right artificial knee joint
CPT/HCPCS: 36415; 85025; 85651; 86140

== ENCOUNTER → 2024-08-12 10:06 | Outpatient (CLI) | payer MEDICARE, SELFPAY ==
--- NOTE | 2024-08-12 10:07 | DI.NM.S_ITS ---
PROCEDURE: NM BONE 3 PHASE RADIOPHARMACEUTICAL: 22 mCi Tc-99m MDP IV. INDICATIONS: painful knee replacement TECHNIQUE: Multiple bone scintigrams were obtained after intravenous injection of Tc-99m MDP, including flow, blood pool, and delayed images centered to the region of interest. COMPARISON: [facility], CR, XR KNEE 4+ VIEWS RIGHT, 07/17/2024, 10:20. FINDINGS/IMPRESSION: Triphasic uptake associated with the right total knee arthroplasty, which may suggest infection, less likely loosening given time frame. Dictated by: Mike Perez M.D. on 08/12/2024 at 16:25 Approved by: Mike Perez M.D. on 08/12/2024 at 16:26
== END ==
LOC: NUCM 10:07
PROVIDERS: PCP Internal Medicine; Referring Provider Orthopaedic Surgery Foot and Ankle Surgery; Visit Provider Orthopaedic Surgery Foot and Ankle Surgery
DX: T84.84XA Pain due to internal orthopedic prosthetic devices, implants and grafts, initial encounter (principal); Z96.651 Presence of right artificial knee joint
CPT/HCPCS: 78315; A9503

== ENCOUNTER → 2025-01-26 | Outpatient (CLI) | payer MEDICARE, SELFPAY ==
--- NOTE | 2025-01-26 12:47 | DI.MG.S_ITS ---
MM screening mammo BI: 01/26/2025. BI-RADS: 1 CLINICAL: 74-year old female for bilateral screening mammogram. Tyrer-Cuzick lifetime risk of 2.8%. No personal or first-degree family history of breast cancer. PRIOR EXAMS 12/13/2022, 12/06/2021. MAMMOGRAPHY TECHNIQUE: 2D and 3D (tomosynthesis) digital mammographic views obtained, with additional images as needed for full coverage. Current study was also evaluated with a Computer Aided Detection (CAD) system. DENSITY C. The breasts are heterogeneously dense, which may obscure small masses. MAMMOGRAPHY FINDINGS Bilateral: No suspicious mass, asymmetry, microcalcification, or other abnormality seen. IMPRESSION: * No evidence of malignancy. RECOMMENDATIONS Bilateral * Annual screening mammography. OVERALL ASSESSMENT CATEGORY BI-RADS-1: Negative. The [employer] recommends annual screening mammography beginning at age 40 for women with average risk of breast cancer. ELECTRONICALLY SIGNED: Tessa Reynoso M.D. on 01/30/2025 at 02:59:08 AM PT Interpreting Station ID: [id number]
== END ==
PROVIDERS: PCP Internal Medicine; Referring Provider Internal Medicine; Visit Provider Internal Medicine
DX: Z12.31 Encounter for screening mammogram for malignant neoplasm of breast (principal); R92.333 Mammographic heterogeneous density, bilateral breasts
CPT/HCPCS: 77063; 77067